=== PATIENT | male | born 1955 | race Two or more races ===

== ENCOUNTER → 2022-12-05 | Outpatient (CLI) | payer OTHER ==
[2022-12-05 06:56] LABS: Urine WBC None Seen /hpf (0 - 3)
[2022-12-05 07:15] LABS: Basophils # (auto) 0 10 ^3/uL (0-0.2); Basophils % (auto) 0.5 % (0.0-2.0); Eosinophils # (auto) 0.2 10 ^3/uL (0-0.8); Eosinophils % (auto) 3.5 % (0.0-7.0); Hematocrit 44.3 % (41.0-53.0); Hemoglobin 15.1 g/dL (13.5-17.5); Lymphocytes % (auto) 36.4 % (10.0-50.0); Mean Corpuscular Hemoglobin 30.8 pg (28.0-32.0); Mean Corpuscular Volume 90.6 fL (80.0-100.0); Monocytes # (auto) 0.6 10 ^3/uL (0-1.3); Monocytes % (auto) 11.8 % (0.0-12.0); Neutrophils # (auto) 2.6 10 ^3/uL (1.6-8.6); Neutrophils % (auto) 47.8 % (37.0-80.0); Nucleated Red Blood Cells % 0.3 %; Red Blood Cells 4.89 10^6/uL (4.5-5.90); Red Cell Distribution Width 13.5 % (11.8-14.3); White Blood Cell 5.4 10^3/uL (4.4-10.8)
[2022-12-05 07:21] LABS: Urine Bacteria NONE SEEN /hpf (None Seen); Urine Blood Negative /uL (Negative); Urine Specific Gravity 1.012 (1.001-1.035)
[2022-12-05 08:05] LABS: Potassium 4.2 mmol/L (3.5-5.1)
[2022-12-05 08:21] LABS: Albumin 3.5 g/dL (3.4-5.0); Bilirubin, Total 0.5 mg/dL (0.2-1.0); Calcium 9.1 mg/dL (8.5-10.1); Total Protein 7.4 g/dL (6.4-8.2)
== END | disposition home or self-care (01) ==
LOC: LAB 06:42 → EDBD 06:42
PROVIDERS: ATTEND Family Medicine
DX: Z00.01 Encounter for general adult medical examination with abnormal findings (principal)
CPT/HCPCS: 36415; 80053; 80061; 81001; 82043; 82306; 83036; 84153; 84443; 85025

== ENCOUNTER → 2023-01-06 | Outpatient (CLI) | payer OTHER ==
[2023-01-06 08:18] LABS: Basophils # (auto) 0 10 ^3/uL (0-0.2); Basophils % (auto) 0.7 % (0.0-2.0); Eosinophils # (auto) 0.2 10 ^3/uL (0-0.8); Eosinophils % (auto) 2.6 % (0.0-7.0); Hematocrit 42.6 % (41.0-53.0); Hemoglobin 14.1 g/dL (13.5-17.5); Lymphocytes # (auto) 1.5 10 ^3/uL (0.4-5.4); Lymphocytes % (auto) 26.6 % (10.0-50.0); Mean Corpuscular Hemoglobin 29.9 pg (28.0-32.0); Mean Corpuscular Hgb Conc. 33.1 g/dL (32.0-36.0); Mean Corpuscular Volume 90.3 fL (80.0-100.0); Monocytes # (auto) 0.6 10 ^3/uL (0-1.3); Monocytes % (auto) 11.2 % (0.0-12.0); Neutrophils # (auto) 3.4 10 ^3/uL (1.6-8.6); Neutrophils % (auto) 58.9 % (37.0-80.0); Nucleated Red Blood Cells % 0.1 %; Red Blood Cells 4.71 10^6/uL (4.5-5.90); Red Cell Distribution Width 13.2 % (11.8-14.3); White Blood Cell 5.8 10^3/uL (4.4-10.8)
[2023-01-06 08:43] LABS: Albumin 3.8 g/dL (3.4-5.0); Calcium 8.8 mg/dL (8.5-10.1); Potassium 4.1 mmol/L (3.5-5.1)
[2023-01-06 08:52] LABS: BUN/Creatinine Ratio 18.6 (10.0-20.0); Bilirubin, Direct 0.1 mg/dL (0-0.2); Bilirubin, Total 0.6 mg/dL (0.2-1.0); Total Protein 7.5 g/dL (6.4-8.2)
== END | disposition home or self-care (01) ==
LOC: LAB 08:02
PROVIDERS: ATTEND Specialist
DX: R94.5 Abnormal results of liver function studies (principal); I10 Essential (primary) hypertension; D64.9 Anemia, unspecified; E78.5 Hyperlipidemia, unspecified; E11.8 Type 2 diabetes mellitus with unspecified complications; E03.9 Hypothyroidism, unspecified
CPT/HCPCS: 36415; 80048; 80061; 80076; 83036; 84443; 85025

== ENCOUNTER → 2023-06-08 | Outpatient (CLI) | payer OTHER ==
[2023-06-08 08:34] LABS: Basophils # (auto) 0 10 ^3/uL (0-0.2); Basophils % (auto) 0.7 % (0.0-2.0); Eosinophils # (auto) 0.1 10 ^3/uL (0-0.8); Eosinophils % (auto) 2.2 % (0.0-7.0); Hematocrit 42.3 % (41.0-53.0); Hemoglobin 14.3 g/dL (13.5-17.5); Lymphocytes # (auto) 1.5 10 ^3/uL (0.4-5.4); Lymphocytes % (auto) 25.8 % (10.0-50.0); Mean Corpuscular Hemoglobin 31.1 pg (28.0-32.0); Mean Corpuscular Volume 91.5 fL (80.0-100.0); Monocytes # (auto) 0.7 10 ^3/uL (0-1.3); Monocytes % (auto) 11.4 % (0.0-12.0); Neutrophils # (auto) 3.5 10 ^3/uL (1.6-8.6); Neutrophils % (auto) 59.9 % (37.0-80.0); Nucleated Red Blood Cells % 0.1 %; Red Blood Cells 4.62 10^6/uL (4.5-5.90); Red Cell Distribution Width 13.7 % (11.8-14.3); White Blood Cell 5.9 10^3/uL (4.4-10.8)
[2023-06-08 09:23] LABS: Alanine Aminotransferase 20 U/L (7-40); Albumin 4.1 g/dL (3.2-4.8); Alkaline Phosphatase 66 U/L (46-116); Anion Gap 6 (5-15); Aspartate Aminotransferase 18 U/L (13-40); BUN/Creatinine Ratio 15.5 (10.0-20.0); Bilirubin, Direct 0.2 mg/dL (<0.3); Bilirubin, Total 0.7 mg/dL (0.2-1.0); Blood Urea Nitrogen 13 mg/dL (9-23); Calcium 9.1 mg/dL (8.5-10.1); Carbon Dioxide 28 mmol/L (20-30); Chloride 108 mmol/L (98-107); Cholesterol 129 mg/dL (< 200); Glucose 95 mg/dL (74-106); HDL Cholesterol 35 mg/dL (40-59); LDL Cholesterol 83 mg/dL (< 100); Potassium 4.1 mmol/L (3.5-5.1); Sodium 142 mmol/L (136-145); Total Protein 7.2 g/dL (5.7-8.2); Triglycerides 72 mg/dL (< 150)
== END | disposition home or self-care (01) ==
LOC: LAB 08:17
PROVIDERS: ATTEND Specialist
DX: I10 Essential (primary) hypertension (principal); D64.9 Anemia, unspecified; E11.8 Type 2 diabetes mellitus with unspecified complications; E03.9 Hypothyroidism, unspecified; E78.5 Hyperlipidemia, unspecified; R45.6 Violent behavior
CPT/HCPCS: 36415; 80048; 80061; 80076; 83036; 84443; 85025

== ENCOUNTER → 2023-07-31 | Outpatient (CLI) | payer OTHER ==
[2023-07-31 08:56] LABS: Alanine Aminotransferase 20 U/L (7-40); Alkaline Phosphatase 69 U/L (46-116); Anion Gap 9 (5-15); BUN/Creatinine Ratio 19.8 (10.0-20.0); Blood Urea Nitrogen 16 mg/dL (9-23); Calcium 9.3 mg/dL (8.5-10.1); Carbon Dioxide 27 mmol/L (20-30); Chloride 107 mmol/L (98-107); Glucose 94 mg/dL (74-106); Potassium 4.3 mmol/L (3.5-5.1); Sodium 143 mmol/L (136-145); Triglycerides 81 mg/dL (< 150)
[2023-07-31 08:57] LABS: LDL Cholesterol 96 mg/dL (< 100)
[2023-07-31 08:58] LABS: Albumin 4.3 g/dL (3.2-4.8); Aspartate Aminotransferase 21 U/L (13-40); Bilirubin, Total 0.5 mg/dL (0.2-1.0); Cholesterol 145 mg/dL (< 200); HDL Cholesterol 38 mg/dL (40-59); Total Protein 7.3 g/dL (5.7-8.2)
== END | disposition home or self-care (01) ==
LOC: LAB 07:59
PROVIDERS: ATTEND Family Medicine
DX: I49.5 Sick sinus syndrome (principal); E78.5 Hyperlipidemia, unspecified; E55.9 Vitamin D deficiency, unspecified; I38 Endocarditis, valve unspecified; R74.8 Abnormal levels of other serum enzymes; H35.032 Hypertensive retinopathy, left eye
CPT/HCPCS: 36415; 80053; 80061; 82306; 83036

== ENCOUNTER 2024-06-22 08:13 | Day surgery (SDC) | payer OTHER ==
[2024-06-20 10:21] LABS: Basophils # (auto) 0 10 ^3/uL (0-0.2); Basophils % (auto) 0.5 % (0.0-2.0); Eosinophils # (auto) 0.1 10 ^3/uL (0-0.8); Eosinophils % (auto) 1.2 % (0.0-7.0); Hematocrit 45.5 % (41.0-53.0); Hemoglobin 15.5 g/dL (13.5-17.5); Lymphocytes # (auto) 1.5 10 ^3/uL (0.4-5.4); Lymphocytes % (auto) 22.8 % (10.0-50.0); Mean Corpuscular Hemoglobin 31.3 pg (28.0-32.0); Monocytes # (auto) 0.6 10 ^3/uL (0-1.3); Monocytes % (auto) 9.2 % (0.0-12.0); Neutrophils # (auto) 4.3 10 ^3/uL (1.6-8.6); Neutrophils % (auto) 66.3 % (37.0-80.0); Nucleated Red Blood Cells % 0.1 %; Platelet Count (auto) 168 10^3/uL (140-450); Red Blood Cells 4.94 10^6/uL (4.5-5.90); Red Cell Distribution Width 13.7 % (11.8-14.3); White Blood Cell 6.4 10^3/uL (4.4-10.8)
[2024-06-20 10:38] LABS: INR 1.03 (0.9-1.15); Prothrombin Time 10.9 sec (9.3-11.8)
[2024-06-20 11:07] LABS: Alanine Aminotransferase 24 U/L (7-40); Albumin 4.5 g/dL (3.2-4.8); Alkaline Phosphatase 73 U/L (46-116); Anion Gap 6 (5-15); Aspartate Aminotransferase 18 U/L (13-40); BUN/Creatinine Ratio 18.7 (10.0-20.0); Blood Urea Nitrogen 17 mg/dL (9-23); Calcium 10.1 mg/dL (8.7-10.4); Carbon Dioxide 28 mmol/L (20-31); Chloride 107 mmol/L (98-107); Glucose 121 mg/dL (74-106); Potassium 4.7 mmol/L (3.5-5.1); Sodium 141 mmol/L (136-145)
[2024-06-20 11:08] LABS: Bilirubin, Total 0.4 mg/dL (0.2-1.0); Total Protein 7.8 g/dL (5.7-8.2)
[~2024-06-22] VITALS: Ht 195.6 cm; Wt 81.6 kg
[~2024-06-22 08:13] MED LIST: ASPI-543 PO
[2024-06-22 08:25] VITALS: TEMP 97.6
[2024-06-22] MEDS ORDERED: SODIUM CHLORIDE LOCK 10 ML ONE (08:40)
[2024-06-22] MEDS ORDERED: LIDOCAINE VISCOUS 2% 15ML UD ONE (08:40)
[2024-06-22] MEDS ORDERED: diphenhdrAMINE HCL 50 MG/1 ML VL ONE (08:41)
[2024-06-22 09:03] VITALS: O2SAT 94
[2024-06-22] MEDS: MIDAZOLAM HCL 5 MG/ML-1ML VIAL ONE (09:07)
[2024-06-22] MEDS: fentaNYL CITRATE 100 MCG/2 ML VL ONE (09:07)
[2024-06-22 09:45] VITALS: BP 107/71; PULSE 60; RESP 18; O2SAT 93
== END 2024-06-27 10:20 | disposition home or self-care (01) ==
LOC: GI 08:13
PROVIDERS: ATTEND Internal Medicine Gastroenterology
DX: K62.5 Hemorrhage of anus and rectum (principal); K57.30 Diverticulosis of large intestine without perforation or abscess without bleeding; K52.9 Noninfective gastroenteritis and colitis, unspecified; K64.8 Other hemorrhoids; Z86.0100 Personal history of colon polyps, unspecified; Z95.0 Presence of cardiac pacemaker; Z98.41 Cataract extraction status, right eye; Z98.42 Cataract extraction status, left eye; Z98.890 Other specified postprocedural states
CPT/HCPCS: 36415; 45380; 80053; 85025; 85610; 85730; 88305; J1200; J2250; J3010; J7030; 99152

== ENCOUNTER → 2024-08-15 | Outpatient (CLI) | payer OTHER ==
[2024-08-15 09:48] LABS: Basophils # (auto) 0 10 ^3/uL (0-0.2); Basophils % (auto) 0.5 % (0.0-2.0); Eosinophils # (auto) 0.1 10 ^3/uL (0-0.8); Eosinophils % (auto) 2.5 % (0.0-7.0); Hematocrit 44.6 % (41.0-53.0); Hemoglobin 14.9 g/dL (13.5-17.5); Lymphocytes # (auto) 1.7 10 ^3/uL (0.4-5.4); Lymphocytes % (auto) 30.2 % (10.0-50.0); Mean Corpuscular Hemoglobin 30.8 pg (28.0-32.0); Mean Corpuscular Hgb Conc. 33.3 g/dL (32.0-36.0); Mean Corpuscular Volume 92.3 fL (80.0-100.0); Monocytes # (auto) 0.7 10 ^3/uL (0-1.3); Monocytes % (auto) 12.5 % (0.0-12.0); Neutrophils % (auto) 54.3 % (37.0-80.0); Nucleated Red Blood Cells % 0.1 %; Platelet Count (auto) 168 10^3/uL (140-450); Red Blood Cells 4.83 10^6/uL (4.5-5.90); Red Cell Distribution Width 13.8 % (11.8-14.3); White Blood Cell 5.6 10^3/uL (4.4-10.8)
[2024-08-15 10:22] LABS: Alanine Aminotransferase 33 U/L (7-40); Albumin 4.3 g/dL (3.2-4.8); Alkaline Phosphatase 74 U/L (46-116); Anion Gap 7 (5-15); Aspartate Aminotransferase 22 U/L (13-40); Blood Urea Nitrogen 18 mg/dL (9-23); Carbon Dioxide 28 mmol/L (20-31); Chloride 108 mmol/L (98-107); Glucose 99 mg/dL (74-106); LDL Cholesterol 94 mg/dL (< 100); Potassium 4.7 mmol/L (3.5-5.1); Sodium 143 mmol/L (136-145); Triglycerides 145 mg/dL (< 150)
[2024-08-15 10:23] LABS: Bilirubin, Direct 0.1 mg/dL (<0.3); Bilirubin, Total 0.3 mg/dL (0.2-1.0); Cholesterol 151 mg/dL (< 200); HDL Cholesterol 39 mg/dL (40-59); Total Protein 7.6 g/dL (5.7-8.2)
== END | disposition home or self-care (01) ==
LOC: LAB 09:20
PROVIDERS: ATTEND Specialist
DX: R68.89 Other general symptoms and signs (principal); I10 Essential (primary) hypertension; E03.9 Hypothyroidism, unspecified; D64.9 Anemia, unspecified; E78.5 Hyperlipidemia, unspecified; E11.9 Type 2 diabetes mellitus without complications
CPT/HCPCS: 36415; 80053; 80061; 82248; 84443; 85025

== ENCOUNTER → 2024-09-09 | Outpatient (CLI) | payer OTHER ==
[~2024-09-09] VITALS: Ht 167.6 cm; Wt 86.2 kg
[2024-09-09] MEDS: REGADENOSON 0.4 MG/5 ML SYRG IV ONE ×2 (08:52→09:04)
--- NOTE | 2024-09-12 08:20 | DVHSR ---
APPROVED REPORT Exam: Nuclear Stress Test Indication: HTN BMI: 0 Medical History Medical History: HTN, HLO, DM, Pacemaker Medications: NKDA Allergies: No known drug allergies Stress Test Details Stress Test: Pharmacologic stress testing performed using 0.4 mg of regadenoson per 5 mL given IV ov er 10 seconds. HR Resting HR: 60 bpmMax Heart Rate (APMHR): 150.095300 bpm Max HR Achieved: 78 bpmTarget HR (85% APMHR): 127.782172 bpm % of APMHR: 52.00 Recovery HR: 72 bpm BP Resting BP: 147/88 mmHg Recovery BP: 138/80 mmHg ECG Resting ECG: Paced Clinical Reason for Termination: Completed protocol Nurse Comments Recieved pt. from [facility]. A/Ox4 on RA. Connected to spout tender, VS stable. PIV flushes well. Reviewed POC. Pt. verbalized understanding of procedure including risks and side ef fects, agrees for stress testing. Lexiscan stress test performed per protocol. [facility] tech administered Cardiolite. Pt. tolerated well . Pt. stable, no change on exam. VS returned to baseline. Transferred to [facility] via wheelchair w/ te ch. Stress ECG Conclusion Review of the myocardial perfusion images demonstrated a small area of moderate intensity reduced rad iotracer uptake in the LV apex. This appears to be mostly fixed based on review of the resting image s. Otherwise, there is homogeneous radiotracer uptake throughout the rest of the left ventricular my ocardium during stress. Ejection fraction is slightly decreased and is estimated at 47%. No gated i mages are available to assess for wall motion. Impression: 1. Fixed small defect in the LV apex which could represent either apical thinning artifact versus donato or small infarction. 2. No evidence of ischemia. 3. Mildly decreased left ventricular systolic function with ejection fraction of 47%. NM EXAM: Myocardial Perfusion REST/STRESS Imaging Protocol: Rest Tc-99m/Stress Tc-99m 1 day Resting Data Rest SPECT myocardial perfusion imaging was performed in supine position 60 minutes following the int ravenous injection of 11.2 mCi of Tc-99m Sestamibi. Time of rest injection: 0735 Time of rest imagin Administration Route: IV Administration Site: Right Hand Pharmacologic Stress Pharmacologic stress test was performed by injecting Regadenoson 0.4 mg IV push followed by the intra venous injection of 30.4 mCi of Tc-99m Sestamibi. Time of stress injection: 851 Time of stress imagin Administration Route: IV Administration Site: Right Hand Gated Stress SPECT was performed 60 minutes after stress injection. The images were gated to evaluate regional wall motion and calculate left ventricular ejection fracti on. Stress only was performed in the Supine position. Nuclear Conclusion ECG Findings: negative for ischemia Clinical Findings: negative for ischemia Nuclear Findings: negative for ischemia Exercise Capacity: not assessed Left Ventricular Function: abnormal Risk Study: moderate Review of the myocardial perfusion images demonstrated a small area of moderate intensity reduced rad iotracer uptake in the LV apex. This appears to be mostly fixed based on review of the resting image s. Otherwise, there is homogeneous radiotracer uptake throughout the rest of the left ventricular my ocardium during stress. Ejection fraction is slightly decreased and is estimated at 47%. No gated i mages are available to assess for wall motion. Impression: 1. Fixed small defect in the LV apex which could represent either apical thinning artifact versus donato or small infarction. 2. No evidence of ischemia. 3. Mildly decreased left ventricular systolic function with ejection fraction of 47%.
== END | disposition home or self-care (01) ==
LOC: XYW 06:52
PROVIDERS: ATTEND Specialist
DX: I11.0 Hypertensive heart disease with heart failure (principal); I50.20 Unspecified systolic (congestive) heart failure; E11.9 Type 2 diabetes mellitus without complications; E78.5 Hyperlipidemia, unspecified; Z95.0 Presence of cardiac pacemaker
CPT/HCPCS: 78452; 93017; A9500; J2785

== ENCOUNTER → 2024-09-09 | Outpatient (CLI) | payer OTHER ==
[2024-09-09 11:06] LABS: Anion Gap 4 (5-15); Carbon Dioxide 27 mmol/L (20-31); Chloride 107 mmol/L (98-107); Potassium 4.3 mmol/L (3.5-5.1); Sodium 138 mmol/L (136-145)
[2024-09-09 11:08] LABS: Calcium 9.3 mg/dL (8.7-10.4)
[2024-09-09 11:13] LABS: BUN/Creatinine Ratio 16.2 (10.0-20.0); Blood Urea Nitrogen 16 mg/dL (9-23)
[2024-09-09 11:14] LABS: Glucose 159 mg/dL (74-106)
[2024-09-09 11:22] LABS: Creatinine, Urine 101.04 mg/dL (30.0-125.0)
== END | disposition home or self-care (01) ==
LOC: LAB 10:18
PROVIDERS: ATTEND Family Medicine
DX: E11.9 Type 2 diabetes mellitus without complications (principal)
CPT/HCPCS: 36415; 80048; 82043; 82570

== ENCOUNTER → 2024-11-03 | Outpatient (CLI) | payer OTHER ==
[2024-11-03 07:49] LABS: Urine Bacteria None Seen /hpf (None Seen)
[2024-11-03 08:12] LABS: Basophils # (auto) 0 10 ^3/uL (0-0.2); Basophils % (auto) 0.7 % (0.0-2.0); Eosinophils # (auto) 0.1 10 ^3/uL (0-0.8); Eosinophils % (auto) 2.3 % (0.0-7.0); Hematocrit 46.5 % (41.0-53.0); Hemoglobin 16.1 g/dL (13.5-17.5); Lymphocytes # (auto) 1.9 10 ^3/uL (0.4-5.4); Lymphocytes % (auto) 34.9 % (10.0-50.0); Mean Corpuscular Hemoglobin 31.5 pg (28.0-32.0); Mean Corpuscular Hgb Conc. 34.5 g/dL (32.0-36.0); Mean Corpuscular Volume 91.2 fL (80.0-100.0); Monocytes # (auto) 0.7 10 ^3/uL (0-1.3); Monocytes % (auto) 12.3 % (0.0-12.0); Neutrophils # (auto) 2.8 10 ^3/uL (1.6-8.6); Neutrophils % (auto) 49.8 % (37.0-80.0); Nucleated Red Blood Cells % 0.2 %; Platelet Count (auto) 179 10^3/uL (140-450); Red Cell Distribution Width 13.5 % (11.8-14.3); White Blood Cell 5.5 10^3/uL (4.4-10.8)
[2024-11-03 08:19] LABS: Urine Blood Negative /uL (Negative); Urine Clarity Clear (Clear); Urine Color Yellow (Yellow); Urine Protein, UAD Negative (Negative); Urine Specific Gravity 1.015 (1.001-1.035); Urine Squamous Epithelial Cell None Seen /hpf (<5); Urine Urobilinogen Normal (Negative); Urine WBC < 1 /HPF (0-3); Urine pH 6.5 (5.0-9.0)
[2024-11-03 08:34] LABS: Chloride 105 mmol/L (98-107); Potassium 4.5 mmol/L (3.5-5.1); Sodium 140 mmol/L (136-145); Triglycerides 137 mg/dL (< 150)
[2024-11-03 12:54] LABS: Alkaline Phosphatase 74 U/L (46-116); Anion Gap 6 (5-15); Blood Urea Nitrogen 15 mg/dL (9-23); Carbon Dioxide 29 mmol/L (20-31); Glucose 93 mg/dL (74-106)
[2024-11-03 12:55] LABS: Alanine Aminotransferase 29 U/L (7-40); Aspartate Aminotransferase 25 U/L (13-40); Bilirubin, Direct 0.2 mg/dL (<0.3); Bilirubin, Total 0.6 mg/dL (0.2-1.0); Calcium 9.9 mg/dL (8.7-10.4)
[2024-11-03 12:56] LABS: Albumin 4.5 g/dL (3.2-4.8); Cholesterol 171 mg/dL (< 200); HDL Cholesterol 42 mg/dL (40-59); LDL Cholesterol 117 mg/dL (< 100); Total Protein 7.7 g/dL (5.7-8.2)
== END | disposition home or self-care (01) ==
LOC: LAB 07:17
PROVIDERS: ATTEND Family Medicine
DX: E11.9 Type 2 diabetes mellitus without complications (principal); R68.89 Other general symptoms and signs; I10 Essential (primary) hypertension; E78.5 Hyperlipidemia, unspecified; E03.9 Hypothyroidism, unspecified; D64.9 Anemia, unspecified
CPT/HCPCS: 36415; 80053; 80061; 81001; 82248; 83036; 84153; 84443; 85025

== ENCOUNTER 2025-03-07 07:21 | Outpatient (CLI) | payer OTHER ==
[2025-03-07 08:12] LABS: Hematocrit 43.3 % (41.0-53.0); Hemoglobin 14.7 g/dL (13.5-17.5); Mean Corpuscular Hemoglobin 30.7 pg (28.0-32.0); Mean Corpuscular Volume 90.3 fL (80.0-100.0); Nucleated Red Blood Cells % 0.0 %
[2025-03-07 08:41] LABS: Alanine Aminotransferase 19 U/L (7-40); Alkaline Phosphatase 63 U/L (46-116); Anion Gap 8 (5-15); BUN/Creatinine Ratio 21.6 (10.0-20.0); Blood Urea Nitrogen 19 mg/dL (9-23); Calcium 9.3 mg/dL (8.7-10.4); Carbon Dioxide 26 mmol/L (20-31); Glucose 91 mg/dL (74-106); Potassium 3.9 mmol/L (3.5-5.1); Sodium 143 mmol/L (136-145); Triglycerides 94 mg/dL (< 150)
[2025-03-07 08:42] LABS: Total Protein 6.8 g/dL (5.7-8.2)
[2025-03-07 08:43] LABS: Albumin 4.1 g/dL (3.2-4.8); Bilirubin, Direct 0.2 mg/dL (<0.3); Bilirubin, Total 0.6 mg/dL (0.2-1.0); Cholesterol 126 mg/dL (< 200)
[2025-03-07 08:45] LABS: Chloride 109 mmol/L (98-107); HDL Cholesterol 32 mg/dL (40-59)
== END 2025-03-07 17:00 | disposition home or self-care (01) ==
LOC: LAB 07:21
PROVIDERS: ATTEND Specialist
DX: I10 Essential (primary) hypertension (principal); E11.9 Type 2 diabetes mellitus without complications; E78.5 Hyperlipidemia, unspecified; E03.9 Hypothyroidism, unspecified; D64.9 Anemia, unspecified; R68.89 Other general symptoms and signs
CPT/HCPCS: 36415; 80053; 80061; 82248; 83036; 84443; 85025

== ENCOUNTER → 2025-05-03 | Outpatient (CLI) | payer OTHER ==
[2025-05-03 07:58] LABS: Hematocrit 41.9 % (41.0-53.0); Hemoglobin 14.8 g/dL (13.5-17.5); Mean Corpuscular Hemoglobin 32.0 pg (28.0-32.0); Mean Corpuscular Volume 90.4 fL (80.0-100.0); Nucleated Red Blood Cells % 0.1 %
[2025-05-03 08:13] LABS: Alanine Aminotransferase 19 U/L (7-40); Albumin 4.0 g/dL (3.2-4.8); Alkaline Phosphatase 68 U/L (46-116); Anion Gap 8 (5-15); BUN/Creatinine Ratio 17.1 (10.0-20.0); Bilirubin, Total 0.5 mg/dL (0.2-1.0); Blood Urea Nitrogen 20 mg/dL (9-23); Calcium 8.9 mg/dL (8.7-10.4); Carbon Dioxide 27 mmol/L (20-31); Chloride 107 mmol/L (98-107); Cholesterol 134 mg/dL (< 200); Glucose 97 mg/dL (74-106); Potassium 4.6 mmol/L (3.5-5.1); Sodium 142 mmol/L (136-145); Total Protein 7.1 g/dL (5.7-8.2); Triglycerides 124 mg/dL (< 150)
[2025-05-03 08:14] LABS: HDL Cholesterol 31 mg/dL (40-59)
== END | disposition home or self-care (01) ==
LOC: LAB 07:28
PROVIDERS: ATTEND Specialist
DX: I11.0 Hypertensive heart disease with heart failure (principal); I50.9 Heart failure, unspecified; E11.9 Type 2 diabetes mellitus without complications; E78.5 Hyperlipidemia, unspecified; E03.9 Hypothyroidism, unspecified; D64.9 Anemia, unspecified; R68.89 Other general symptoms and signs
CPT/HCPCS: 36415; 80053; 80061; 83036; 84443; 85025

== ENCOUNTER 2025-06-10 11:22 | Inpatient (IN) | payer OTHER ==
[~2025-06-10] VITALS: Ht 175.3 cm; Wt 89.5 kg
--- NOTE | 2025-06-10 11:39 | ED.PDOC ---
Shyanne. trauma (HPI) HPI Comments A 69 YEAR OLD MALE PRESENTS TO THE ED WITH COMPLAINT OF LEFT HIP PAIN AFTER A MECHANICAL FALL FROM CLEANING A POOL, TRIPPING AND LANDING DIRECTLY ON HIS HIP. HE PRESENTS IN A WHEELCHAIR DUE TO INABILITY TO BEAR WEIGHT. THE PAIN IS LOCALIZED TO THE HIP AND DOES NOT RADIATE TO THE LEG. PT IS UNABLE TO WALK AND STAND DUE TO THE PAIN. THE PAIN LEVEL IS 8/10 AT THIS TIME. PATIENT DENIES ASSOCIATED HEAD TRAUMA, LIGHTHEADEDNESS, OR LOC. PATIENT DENIES FEVER, CHILLS, SHORTNESS OF BREATH, CHEST PAIN, ABDOMINAL PAIN, NAUSEA, VOMITING, HEADACHE, OR OTHER COMPLAINTS. NO OTHER SYMPTOMS OR MODIFYING FACTORS AT THIS TIME. PATIENT IS ALERT AND ORIENTATION. Chief Complaint: Fall Injury Time Seen by MD: 11:30 Reviewed notes: Nurses Notes, Medications, Allergies Allergies: Coded Allergies: NO KNOWN ALLERGIES (Unverified , 09/09/24) Home Meds Reported Medications Aspirin (Aspir-Low) 81 Mg Tab, 81 MG PO DAILY for 30 Days, MG 06/20/24 Information Source: Patient Mode of Arrival: Ambulatory Severity: Moderate Duration: Since onset Location: (L) Hip Location of laceration: None Mechanism: Fall Associated signs and symtoms: Other (LEFT HIP PAIN ) Past Medical History PAST MEDICAL HISTORY: Denies Surgical History: Denies all surgeries Family History Family History: Reviewed,noncontributory to illness Social History Smoker: Non-Smoker Alcohol: Denies ETOH Use Drugs: Denies Drug Use Lives In: Home Constitutional: denies: chills, diaphoresis, fatigue, fever, malaise, sweats, weakness, others EENTM: denies: blurred vision, double vision, ear bleeding, ear discharge, ear drainage, ear pain, ear ringing, eye pain, eye redness, hearing loss, mouth pain, mouth swelling, nasal discharge, nose bleeding, nose congestion, nose pain, photophobia, tearing, throat pain, throat swelling, voice changes, others Respiratory: denies: cough, hemoptysis, orthopnea, SOB at rest, shortness of breath, SOB with excertion, stridor, wheezing, others Cardiovascular: denies: chest pain, dizzy spells, diaphoresis, Dyspnea on exertion, edema, irregular heart beat, left arm pain, lightheadedness, palpitations, PND, syncope, others Gastrointestinal: denies: abdomen distended, abdominal pain, blood streaked bowels, constipated, diarrhea, dysphagia, difficulty swallowing, hematemesis, melena, nausea, poor appetite, poor fluid intake, rectal bleeding, rectal pain, vomiting, others Genitourinary: denies: burning, dysuria, flank pain, frequency, hematuria, incontinence, penile discharge, penile sore, pain, testicle pain, testicle swelling, urgency, others Neurological: denies: dizziness, fainting, headache, left sided numbness, left sided weakness, numbness, paresthesia, pre-existing deficit, right sided numbness, right sided weakness, seizure, speech problems, tingling, tremors, weakness, others Musculoskeletal: reports: joint pain, muscle pain, others (LEFT HIP PAIN ); denies: back pain, gout, joint swelling, muscle stiffness, neck pain Integumetry: denies: bruises, change in color, change in hair/nails, dryness, laceration, lesions, lumps, rash, wounds, others Allergic/Immunocompromised: denies: Difficulty Healing, Frequent Infections, Hives, Itching, others Hematologic/Lymphatic: denies: anemia, blood clots, easy bleeding, easy bruising, swollen glands, others Endocrine: denies: excessive hunger, excessive sweating, excessive thirst, excessive urination, flushing, intolerance to cold, intolerance to heat, unexplained weight gain, unexplained weight loss, others Psychiatric: denies: anxiety, bipolar disorder, depression, hopeless, panic disorder, schizophrenia, sleepless, suicidal, others All Other Systems: Reviewed and Negative Physical Exam General Appearance: No Apparent Distress, Normal HEENT: Normal ENT Inspection, PERRL/EOMI, Pharynx Normal, TMs Normal Neck: Full Range of Motion, Non-Tender, Normal, Normal Inspection Respiratory: Chest Non-Tender, Lungs Clear, No Accessory Muscle Use, No Respiratory Distress, Normal Breath Sounds Cardiovascular: No Edema, No JVD, No Murmur, No Gallop, Normal Peripheral Pulses, Regular Rate/Rhythm Breast Exam: Deferred Gastrointestinal: No Organomegaly, Non Tender, No Pulsatile Mass, Normal Bowel Sounds, Soft Genitalia: Deferred Pelvic: Deferred Rectal: Deferred Extremities: Decreased range of motion, No calf tenderness, Normal capillary refill, No pedal edema, Tender (ON LEFT ANTERIOR AND POSTERIOR HIP, NO DEFORMITY, ROM DECREASING, NEUROVASCULAR INTACT. ) Musculoskeletal : Apperance: Normal Neurologic: Alert, social media coordinator II-XII nml as Tested, No Motor Deficits, Normal Affect, Normal Mood, No Sensory Deficits Cerebellar Function: Normal Reflexes: Normal Skin: Dry, Normal Color, Warm Peripheral Pulses: 2+ carotid (R), 2+ carotid (L) Lymphatic: No Adenopathy Was a procedure done? Was a procedure done?: No Differential Diagnosis Multiple Trauma: Fractures, Contusion, Other (SPRAIN, STRAIN, DISLOCATION ) X-Ray, Labs, Meds, VS Vital Signs Date Time Temp Pulse Resp B/P (MAP) Pulse Ox O2 Delivery O2 Flow Rate FiO2 06/10/25 16:00 60 18 128/71 (90) 92 06/10/25 14:30 60 18 127/75 06/10/25 14:30 60 18 127/75 (92) 92 06/10/25 13:24 60 12 137/73 06/10/25 12:30 60 12 95 Room Air* 0 21 06/10/25 12:30 98.3 60 12 137/73 (94) 95 98.3 06/10/25 11:25 98.0 60 16 143/82 98 98.0 Lab Test 06/10/25 12:30 06/10/25 12:19 Range/Units Urine Color Yellow Yellow Urine Clarity Clear Clear Urine pH 5.5 5.0-9.0 Urine Specific [place] 1.026 1.001-1.035 Urine Protein Negative Negative Urine Ketones Negative Negative Urine Blood Negative Negative /uL Urine Nitrite Negative Negative Urine Bilirubin Negative Negative Urine Urobilinogen Normal Negative mg/dL Urine Leukocyte Esterase Negative Negative /uL Urine RBC 1 0 - 3 /hpf Urine Microscopic WBC 1 0-3 /HPF Urine Squamous Epithelial Cells Few <5 /hpf Urine Bacteria None seen None Seen /hpf Urine Mucus Few None Seen Urine Glucose Normal Normal mg/dL White Blood Count 8.6 4.4-10.8 10^3/uL Red Blood Count 4.51 4.5-5.90 10^6/uL Hemoglobin 13.9 13.5-17.5 g/dL Hematocrit 41.6 41.0-53.0 % Mean Corpuscular Volume 92.3 80.0-100.0 fL Mean Corpuscular Hemoglobin 30.9 28.0-32.0 pg Mean Corpuscular Hemoglobin Concent 33.5 32.0-36.0 g/dL Red Cell Distribution Width 13.6 11.8-14.3 % Platelet Count 162 140-450 10^3/uL Mean Platelet Volume 8.6 6.9-10.8 fL Neutrophils (%) (Auto) 84.0 H 37.0-80.0 % Lymphocytes (%) (Auto) 8.9 L 10.0-50.0 % Monocytes (%) (Auto) 6.4 0.0-12.0 % Eosinophils (%) (Auto) 0.4 0.0-7.0 % Basophils (%) (Auto) 0.3 0.0-2.0 % Neutrophils # (Auto) 7.2 1.6-8.6 10 ^3/uL Lymphocytes # (Auto) 0.8 0.4-5.4 10 ^3/uL Monocytes # (Auto) 0.5 0-1.3 10 ^3/uL Eosinophils # (Auto) 0 0-0.8 10 ^3/uL Basophils # (Auto) 0 0-0.2 10 ^3/uL Nucleated Red Blood Cells 0.0 % Prothrombin Time 11.4 9.3-11.8 sec Prothrombin Time INR 1.08 0.9-1.15 Sodium Level 141 136-145 mmol/L Potassium Level 4.2 3.5-5.1 mmol/L Chloride Level 105 98-107 mmol/L Carbon Dioxide Level 27 20-31 mmol/L Anion Gap 9 5-15 Blood Urea Nitrogen 20 9-23 mg/dL Creatinine 1.16 0.700-1.30 mg/dL Glomerular Filtration Rate Calc 67 >90 mL/min BUN/Creatinine Ratio 17.2 10.0-20.0 Serum Glucose 138 H 74-106 mg/dL Calcium Level 9.1 8.7-10.4 mg/dL Current Medications Medications (Trade) Dose Ordered Sig/Sarah Route Start Time Stop Time Status Last Admin Ondansetron HCl (Zofran) 4 mg ONCE ONCE IV 06/10/25 12:15 06/10/25 12:16 DC 06/10/25 13:15 Sodium Chloride 1,000 ml @ 1,000 mls/hr Q1H ONCE IV 06/10/25 12:15 06/10/25 13:14 DC 10/18/25 13:15 Hydromorphone HCl (Dilaudid Injection) 0.5 mg ONCE ONCE IV 06/10/25 13:15 06/10/25 13:16 DC 06/10/25 13:24 Acetaminophen/ Hydrocodone Bitart ([place] 10/325MG Tab) 1 tab ONCE ONCE PO 06/10/25 17:00 06/10/25 17:01 DC 06/10/25 17:08 [place] [address] Ph: [phone] DIAGNOSTIC IMAGING Diagnostic Imaging Report : [id number] Signed PATIENT: WALTER MCCAIN ACCT: [id number] UNIT: [id number] : 1955 LOC: ER ROOM / BED: / AGE / SEX: 69 / M ADM STATUS: REG ER SERVICE 33 ORDERING PHYSICIAN: LIZETH WALTERS PROCEDURE(s): LHPCT - CT L HIP WITH OUT CONTRAST REASON: FALL TODAY ORDER NUMBER(s): [id number], ACCESSION NUMBER(s): [id number] EXAM: CT CT L HIP WITH OUT CONTRAST HISTORY: FALL TODAY COMPARISON: None TECHNIQUE: Noncontrast axial CT images of the left hip were performed. Sagittal and coronal reformatted images were obtained. This CT exam was performed using one or more of the following dose reduction techniques: Automated exposure control, adjustment of the mA and/or kV according to patient size, or use of iterative reconstruction technique. Radiation Dose Information: CT Dose: CTDI volume is 22.71 mGy. Dose-length product is 705.12 mGy*cm. FINDINGS: There is a displaced fracture of the mid left femoral neck with proximal translation of the distal fracture fragment resulting in coxa vera angulation of the proximal left femur. There is mild soft tissue swelling about the left hip. The visualized pelvic bowel loops are normal caliber. There is mild prostatomegaly. There is a small fat containing left inguinal hernia. There is mild distal colonic diverticulosis. There is subcutaneous soft tissue swelling overlying the left hip. IMPRESSION: 1. Displaced mid left femoral neck fracture with proximal translation of the distal femoral fracture fragment resulting in coxa vera angulation of the proximal left femur. ATED BY: ITZ SIMS MD DICTATED DATE/TIME: 06/10/251223 SIGNED BY: ITZ SIMS MD SIGNED DATE/TIME: 06/10/251223 CC: X-Ray, Labs, Meds, VS Comment EXTERNAL MEDICAL RECORDS REVIEWED: [NONE] INDEPENDENT HISTORIANS: [NONE] SOCIAL DETERMINANTS OF HEALTH: [NONE] LABS ORDERED: UA, CBC, BMP, ORTHOPEDIC CONSULTATION REVIEWED AND INTERPRETED RESULTS: NONE IMAGING ORDERED: CT LEFT HIP AND CXR TREATMENTS ORDERED: DILAUDID0.5MG IVP AND ZOFRAN, NS 0.9 NS 125ML/HOUR PROCEDURES PERFORMED: NONE CRITICAL CARE TIME: NONE I HAVE DISCUSSED THE PATIENT WITH THE ATTENDING PHYSICIAN, DR. GUERRERO, HE AGREES WITH THE PATIENT'S PLAN OF CARE AND DISPOSITION. BASED ON HISTORY OF PRESENT ILLNESS, AND PHYSICAL EXAM, PATIENT WILL BE ADMITTED TO HOSPITAL. 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 SPOKE WITH DR. LIU WAS CONTACTED REGARDING IMAGING FINDINGS. WILL ADMIT PATIENT FOR CONSULTATION. ALL PATIENT'S QUESTIONS ADDRESSED AT TIME. Time of 1ST Reevaluation: 12:00 Reevaluation 1ST: Unchanged Consultation: Other (12:00 DR. LIU WAS CONSULTED FOR LEFT HIP SURGERY. HE AGREES TO CONSULT PATIENT AND FOR STAFF TO ADMIT HIM TO THE HOSPITAL. DR. LIU WILL SEE PATIENT TOMORROW. ) Patient Education/Counseling: Diagnosis, Treatment Family Education/Counseling: Diagnosis, Treatment Departure 1 Departure Time of Disposition: 13:00 Impression: Primary Impression: Left displaced femoral neck fracture Additional Impression: Status post fall Disposition: ADMITTED INPATIENT Condition: Serious Critical Care Note Critical Care Time?: No Stability Stability form required: Yes Unstable for transfer: Requires medication, ED Physician Assesment, Possible rapid decline I personally scribed for LIZETH WALTERS ([email or web address]) on 06/10/25 at 11:39. Electronically submitted by Kate Garcia ([facility]). I personally scribed for LIZETH WALTERS ([email or web address]) on 06/10/25 at 13:58. Electronically submitted by Kate Garcia ([facility]). LIZETH WALTERS Jun 10, 2025 11:39
[2025-06-10] MEDS ORDERED: MORPHINE SULFATE INJ 2 MG/ml SYRG IV ONE (12:15)
--- NOTE | 2025-06-10 12:27 | DVH ---
EXAM: CT CT L HIP WITH OUT CONTRAST HISTORY: FALL TODAY COMPARISON: None TECHNIQUE: Noncontrast axial CT images of the left hip were performed. Sagittal and coronal reformatt ed images were obtained. This CT exam was performed using one or more of the following dose reduction techniques: Automated exposure control, adjustment of the mA and/or kV according to patient size, or use of iterative reconstruction technique. Radiation Dose Information: CT Dose: CTDI volume is 22.71 mGy. Dose-length product is 705.12 mGy*cm. FINDINGS: There is a displaced fracture of the mid left femoral neck with proximal translation of the distal fr acture fragment resulting in coxa vera angulation of the proximal left femur. There is mild soft tiss ue swelling about the left hip. The visualized pelvic bowel loops are normal caliber. There is mild prostatomegaly. There is a small fat containing left inguinal hernia. There is mild distal colonic d iverticulosis. There is subcutaneous soft tissue swelling overlying the left hip. IMPRESSION: 1. Displaced mid left femoral neck fracture with proximal translation of the distal femoral fracture fragment resulting in coxa vera angulation of the proximal left femur.
[2025-06-10 12:30] VITALS: PULSE 60; RESP 12; O2SAT 95
--- NOTE | 2025-06-10 12:41 | DVH ---
CHEST RADIOGRAPH Indication: PRE SURGERY Technique: Single frontal view of the chest was obtained COMPARISON: None FINDINGS: Lines and Tubes: Pacemaker/ AICD in the left upper chest with 2 cardiac leads. Lungs: Clear Pleura: No effusion. No pneumothorax. Cardiomediastinal contours: Unremarkable Bones: Unremarkable IMPRESSION: 1. No radiographic evidence of acute cardiopulmonary abnormality.
[2025-06-10 13:05] LABS: Hematocrit 41.6 % (41.0-53.0); Hemoglobin 13.9 g/dL (13.5-17.5); Mean Corpuscular Hemoglobin 30.9 pg (28.0-32.0); Mean Corpuscular Volume 92.3 fL (80.0-100.0); Nucleated Red Blood Cells % 0.0 %
[2025-06-10 13:08] LABS: Chloride 105 mmol/L (98-107); Potassium 4.2 mmol/L (3.5-5.1); Sodium 141 mmol/L (136-145)
[2025-06-10 13:09] LABS: Anion Gap 9 (5-15); Calcium 9.1 mg/dL (8.7-10.4); Carbon Dioxide 27 mmol/L (20-31)
[2025-06-10 13:14] LABS: BUN/Creatinine Ratio 17.2 (10.0-20.0); Blood Urea Nitrogen 20 mg/dL (9-23)
[2025-06-10] MEDS: ONDANSETRON HCL 4 MG/2 ML VIAL IV ONE (13:15)
[2025-06-10] MEDS: SODIUM CHLORIDE 0.9% 1,000 ML IV ONE (13:15)
[2025-06-10 13:18] LABS: Glucose 138 mg/dL (74-106)
[2025-06-10 13:20] LABS: INR 1.08 (0.9-1.15); Prothrombin Time 11.4 sec (9.3-11.8)
[2025-06-10] MEDS: HYDROmorphone HCL 2 MG/ML VL/or syr IV ONE (13:24)
[2025-06-10 13:48] LABS: Urine Protein, UAD Negative (Negative)
[2025-06-10] MEDS: HYDROcodone-ACET 10/325MG TAB PO ONE (17:08)
[2025-06-10] MEDS ORDERED: ONDANSETRON HCL 4 MG/2 ML VIAL IV PRN (19:45)
[2025-06-10] MEDS: HYDROmorphone HCL 2 MG/ML VL/or syr IV PRN (20:27)
--- NOTE | 2025-06-10 20:36 | DVHHP2 ---
History of Present Illness Reason for Visit: Left displaced femoral neck fracture History of Present Illness The patient is a 69-year-old male who denies past medical history presented to [facility] ED with complaint of left hip pain status post mechanical fall. Patient reports that he was cleaning a pool when he tripped and fall landing directly on his hip with sustained injury. Patient reports localized pain to the left hip, unable to walk or stand due to the pain, rating pain 8/10 numeric scale, on a wheelchair due to inability to bear weight. Patient was seen and evaluated in the ED, laboratory data shows WBC 8.6, platelets 162, sodium 141, potassium 4.2, BUN 20, creatinine 1.16, glucose 138, calcium 9.1, blood pressure 140/78, heart rate 60, temperature 98.3 F, O2 saturation 95% on room air. Hip CT revealing displaced mid left femoral neck fracture with proximal translation of the distal femoral fracture fragment resulting in coxa vera angulation of the proximal left femur. Please see medication orders section in the computer. On my assessment, at bedside, patient denied chest pain, no headache, dizziness, diaphoresis, shortness of breaths, abdominal pain, nausea, vomiting, no fever, chills. Patient was admitted for further evaluation and medical management. Past Medical History Denies past medical history Past Surgical History Denies all surgeries Family History Reviewed, noncontributory to the management of this case. Past Social History The patient lives at home, denies smoking, alcohol or illicit drugs abuse. Review of Systems Constitutional: No: Fever, Chills, Sweats, Weakness, Malaise, Other Eyes: No: Pain, Vision change, Conjunctivae inflammation, Eyelid inflammation, Other, Redness ENT: No: Ear pain, Ear discharge, Nose pain, Nose discharge, Nose congestion, Mouth pain, Mouth swelling, Throat pain, Throat swelling, Other Respiratory: No: Cough, Dry, Shortness of breath, SOB with excertion, Wheezing, Hemoptysis, Pleuritic Pain, Sputum, Wheezing, Other Cardiovascular: No: Chest Pain, Palpitations, Orthopnea, Paroxysmal Noc. Dyspnea, Edema, Lt Headedness, Other Gastrointestinal: No: Nausea, Vomiting, Abdominal Pain, Diarrhea, Constipation, Melena, Hematochezia, Other Genitourinary: No Dysuria, No Frequency, No Incontinence, No Hematuria, No Retention, No Other Musculoskeletal: other (joint pain, muscle pain, others (left hip pain)); No: neck pain, shoulder pain, arm pain, back pain, hand pain, leg pain, foot pain Skin: No: Rash, Lesions, Jaundice, Bruising, Other Neurological: No: Weakness, Numbness, Incoordination, Change in speech, Confusion, Seizures, Other Allergies: Coded Allergies: NO KNOWN ALLERGIES (Unverified , 09/09/24) Medications Current Medications Medications Dose Ordered Sig/Sarah Route Start Time Stop Time Status Last Admin Dose Admin Hydromorphone HCl 0.5 mg Q4HPRN PRN IV 06/10/25 19:45 06/10/25 20:27 0.5 MG Acetaminophen/ Hydrocodone Bitart 1 tab Q4HP PRN PO 06/10/25 19:45 Ondansetron HCl 4 mg Q4HP PRN IV 06/10/25 19:45 Docusate Sodium 100 mg BIDPRN PRN PO 06/10/25 19:45 Enoxaparin Sodium 40 mg DAILY SC 06/11/25 10:00 Acetaminophen 650 mg Q6HP PRN PO 06/10/25 19:45 Exam Vital Signs Vital Signs Date Time Temp Pulse Resp B/P (MAP) Pulse Ox O2 Delivery O2 Flow Rate FiO2 06/10/25 20:27 60 22 139/72 06/10/25 19:30 98.1 94 98.1 06/10/25 12:30 Room Air* 0 21 General Appearance: Alert, Oriented X3, Cooperative, No acute distress HEENT: Atraumatic, PERRLA, EOMI, Mucous membr. moist/pink Respiratory: Clear to auscultation, Normal air movement Cardiovascular: Regular rate, Normal S1, Normal S2, No murmurs Abdominal: Normal bowel sounds, Soft, No tenderness, No hepatospenomegaly, No masses Extremities: No clubbing, No cyanosis, No edema, Normal pulses, Other (Left hip tenderness) Skin: No rashes, No breakdown, No significant lesion Neuro: Normal speech, Normal tone, Sensation intact, Cranial nerves 3-12 NL, Reflexes 2+, Other (Unsteady gait) Psych/Mental Status: Mental status NL, Mood NL Labs/Xrays Labs Test 06/10/25 12:30 06/10/25 12:19 Range/Units Urine Color Yellow Yellow Urine Clarity Clear Clear Urine pH 5.5 5.0-9.0 Urine Specific [place] 1.026 1.001-1.035 Urine Protein Negative Negative Urine Ketones Negative Negative Urine Blood Negative Negative /uL Urine Nitrite Negative Negative Urine Bilirubin Negative Negative Urine Urobilinogen Normal Negative mg/dL Urine Leukocyte Esterase Negative Negative /uL Urine RBC 1 0 - 3 /hpf Urine Microscopic WBC 1 0-3 /HPF Urine Squamous Epithelial Cells Few <5 /hpf Urine Bacteria None seen None Seen /hpf Urine Mucus Few None Seen Urine Glucose Normal Normal mg/dL White Blood Count 8.6 4.4-10.8 10^3/uL Red Blood Count 4.51 4.5-5.90 10^6/uL Hemoglobin 13.9 13.5-17.5 g/dL Hematocrit 41.6 41.0-53.0 % Mean Corpuscular Volume 92.3 80.0-100.0 fL Mean Corpuscular Hemoglobin 30.9 28.0-32.0 pg Mean Corpuscular Hemoglobin Concent 33.5 32.0-36.0 g/dL Red Cell Distribution Width 13.6 11.8-14.3 % Platelet Count 162 140-450 10^3/uL Mean Platelet Volume 8.6 6.9-10.8 fL Neutrophils (%) (Auto) 84.0 H 37.0-80.0 % Lymphocytes (%) (Auto) 8.9 L 10.0-50.0 % Monocytes (%) (Auto) 6.4 0.0-12.0 % Eosinophils (%) (Auto) 0.4 0.0-7.0 % Basophils (%) (Auto) 0.3 0.0-2.0 % Neutrophils # (Auto) 7.2 1.6-8.6 10 ^3/uL Lymphocytes # (Auto) 0.8 0.4-5.4 10 ^3/uL Monocytes # (Auto) 0.5 0-1.3 10 ^3/uL Eosinophils # (Auto) 0 0-0.8 10 ^3/uL Basophils # (Auto) 0 0-0.2 10 ^3/uL Nucleated Red Blood Cells 0.0 % Prothrombin Time 11.4 9.3-11.8 sec Prothrombin Time INR 1.08 0.9-1.15 Sodium Level 141 136-145 mmol/L Potassium Level 4.2 3.5-5.1 mmol/L Chloride Level 105 98-107 mmol/L Carbon Dioxide Level 27 20-31 mmol/L Anion Gap 9 5-15 Blood Urea Nitrogen 20 9-23 mg/dL Creatinine 1.16 0.700-1.30 mg/dL Glomerular Filtration Rate Calc 67 >90 mL/min BUN/Creatinine Ratio 17.2 10.0-20.0 Serum Glucose 138 H 74-106 mg/dL Calcium Level 9.1 8.7-10.4 mg/dL PATIENT: WALTER MCCAIN ACCT: [id number] UNIT: [id number] : 1955 LOC: ER ROOM / BED: / AGE / SEX: 69 / M ADM STATUS: REG ER SERVICE 1134 ORDERING PHYSICIAN: LIZETH WALTERS PROCEDURE(s): LHPCT - CT L HIP WITH OUT CONTRAST REASON: FALL TODAY ORDER NUMBER(s): [id number], ACCESSION NUMBER(s): [id number] EXAM: CT CT L HIP WITH OUT CONTRAST HISTORY: FALL TODAY COMPARISON: None TECHNIQUE: Noncontrast axial CT images of the left hip were performed. Sagittal and coronal reformatted images were obtained. This CT exam was performed using one or more of the following dose reduction techniques: Automated exposure control, adjustment of the mA and/or kV according to patient size, or use of iterative reconstruction technique. Radiation Dose Information: CT Dose: CTDI volume is 22.71 mGy. Dose-length product is 705.12 mGy*cm. FINDINGS: There is a displaced fracture of the mid left femoral neck with proximal translation of the distal fracture fragment resulting in coxa vera angulation of the proximal left femur. There is mild soft tissue swelling about the left hip. The visualized pelvic bowel loops are normal caliber. There is mild prostatomegaly. There is a small fat containing left inguinal hernia. There is mild distal colonic diverticulosis. There is subcutaneous soft tissue swelling overlying the left hip. IMPRESSION: 1. Displaced mid left femoral neck fracture with proximal translation of the distal femoral fracture fragment resulting in coxa vera angulation of the proximal left femur. ORDERING PHYSICIAN: LIZETH WALTERS PROCEDURE(s): CXR1 - CHEST XRAY 1 VIEW REASON: PRE SURGERY ORDER NUMBER(s): [id number], ACCESSION NUMBER(s): [id number] CHEST RADIOGRAPH Indication: PRE SURGERY Technique: Single frontal view of the chest was obtained COMPARISON: None FINDINGS: Lines and Tubes: Pacemaker/AICD in the left upper chest with 2 cardiac leads. Lungs: Clear Pleura: No effusion. No pneumothorax. Cardiomediastinal contours: Unremarkable Bones: Unremarkable IMPRESSION: 1. No radiographic evidence of acute cardiopulmonary abnormality. SEPSIS Sepsis Screen Date sepsis recognized/suspect: Jun 10, 2025 Time Sepsis recognized/suspect: 0 Recent Procedure: No On Antibiotic Therapy: No Respiratory Rate >20: No Heart Rate >90: No Temp<36 C (96.8 F) or >38.3 C: No SBP <90 or MAP <65 mmHG: No New Acute Mental Status Change: No Is the patient on CPAP, BIPAP,: No Physician Orders * Orthopedic Consult (06/10/25 12:56) Hydromorphone Injection (Dilaudid Inject (06/10/25 19:45) Allergies (06/10/25 19:43) Code Status (06/10/25 19:43) Oxygen Per Hour (06/10/25 19:43) Hydrocodone-Acet 5/325mg Tab (Primrose 5/32 (06/10/25 19:45) Ondansetron Hcl (Zofran) (06/10/25 19:45) Docusate Sodium Capsule (Colace Capsule) (06/10/25 19:45) Enoxaparin Sodium (Lovenox) (06/11/25 10:00) Fall Risk Precautions In Place QSHIFT (06/10/25 19:43) Complete Blood Count (06/11/25 04:00) Comprehensive Metabolic Panel (06/11/25 04:00) Condition: Serious (06/10/25 19:43) Acetaminophen Tablet (Tylenol Tablet) (06/10/25 19:45) Clear Liq Diet (06/11/25 Breakfast) Maintain Bed Rest (06/10/25 19:43) Sequential Compression Device (06/10/25 ) Vital Signs Date Time Temp Pulse Resp B/P (MAP) Pulse Ox O2 Delivery O2 Flow Rate FiO2 06/10/25 20:27 60 22 139/72 06/10/25 19:30 98.1 60 22 139/72 (94) 94 98.1 06/10/25 18:00 60 18 140/78 (98) 92 06/10/25 16:00 60 18 128/71 (90) 92 06/10/25 14:30 60 18 127/75 06/10/25 14:30 60 18 127/75 (92) 92 06/10/25 13:24 60 12 137/73 Laboratory Tests Test 06/10/25 12:19 White Blood Count 8.6 10^3/uL (4.4-10.8) Medications Medications Dose Ordered Sig/Sarah Route Start Time Stop Time Status Last Admin Dose Admin Acetaminophen/ Hydrocodone Bitart 1 tab ONCE ONCE PO 06/10/25 17:00 06/10/25 17:01 DC 06/10/25 17:08 1 TAB Hydromorphone HCl 0.5 mg ONCE ONCE IV 06/10/25 13:15 06/10/25 13:16 DC 06/10/25 13:24 0.5 MG Hydromorphone HCl 0.5 mg Q4HPRN PRN IV 06/10/25 19:45 06/10/25 20:27 0.5 MG Ondansetron HCl 4 mg ONCE ONCE IV 06/10/25 12:15 06/10/25 12:16 DC 06/10/25 13:15 4 MG Sodium Chloride 1,000 ml @ 1,000 mls/hr Q1H ONCE IV 06/10/25 12:15 06/10/25 13:14 DC 06/10/25 13:15 1,000 MLS/HR Assessment/Plan Assessment/Plan Fall with injury Left hip pain Left displaced femoral neck fracture Plan 1. Admit to telemetry unit 2. Breathing treatment 3. Pain control management 4. Management of fluids and electrolytes 5. Consultation for orthopedic surgery 6. Diagnostic tests hip CT 7. DVT prophylaxis-on Lovenox 8. Repeat labs CBC, CMP in a.m. 9. Continue with current medical management 10. Treatment plan discussed with patient and RN. Patient verbalized understanding. Plan discussed with: Patient, Other (RN) My Orders Orders - CRISTI MCCOY DNP Procedure Category Date Status Time Hydromorphone PHA 06/10/25 In Process Injection (Dilaudid 19:45 Allergies ROBIN 06/10/25 In Process 19:43 Code Status CODE 06/10/25 Transmitted 19:43 Oxygen Per Hour RT 06/10/25 Transmitted 19:43 Hydrocodone-Acet PHA 06/10/25 In Process 5/325mg Tab (Primrose 19:45 Ondansetron Hcl PHA 06/10/25 In Process (Zofran) 19:45 Docusate Sodium PHA 06/10/25 In Process Capsule (Colace 19:45 Enoxaparin Sodium PHA 06/11/25 In Process (Lovenox) 10:00 Fall Risk Precautions ROBIN 06/10/[address] 19:43 Complete Blood Count LAB 06/11/25 Verified 04:00 Comprehensive LAB 06/11/25 Verified Metabolic Panel 04:00 Condition: Serious ROBIN 06/10/25 In Process 19:43 Acetaminophen Tablet PHA 06/10/25 In Process (Tylenol Tablet) 19:45 Clear Liq Diet DIET 06/11/25 Transmitted Breakfast Maintain Bed Rest ROBIN 06/10/25 In Process 19:43 Sequential ROBIN 06/10/25 In Process Compression Device Problem List: (1) Fall with injury (2) Left hip pain (3) Left displaced femoral neck fracture Date of Service: Jun 10, 2025 Billing Provider: CRISTI MCCOY DNP Common Visit Codes: [id number] INP/OBS CARE (HIGH) CRISTI MCCOY DNP Jun 10, 2025 20:36
[2025-06-10] MEDS ORDERED: MORPHINE SULFATE INJ 2 MG/ml SYRG IV PRN (20:45)
[2025-06-10] MEDS ORDERED: NITROGLYCERIN 0.4 MG SL TAB SL PRN (20:45)
--- NOTE | 2025-06-10 23:24 | DVH ---
CLINICAL INDICATION: Left femoral neck fracture TECHNIQUE: XYXY PELVIS AP Comparison: None FINDINGS/IMPRESSION: : Displaced subcapital femoral neck fracture with foreshortening, varus angulation, and a half shafts w idth lateral displacement of the distal fragment.
[2025-06-10] MEDS: HYDROcodone-ACET 5/325MG TAB PO PRN (23:49)
[2025-06-11] VITALS (8 sets, daily range): BP systolic 118–145; BP diastolic 74–82; PULSE 60–62; RESP 16–20; TEMP 97.1–99.1; O2SAT 93–94
[2025-06-11] MEDS: ACETAMINOPHEN 325 MG TAB PO PRN (01:23)
[2025-06-11 07:35] LABS: Hematocrit 38.4 % (41.0-53.0); Hemoglobin 13.1 g/dL (13.5-17.5); Mean Corpuscular Hemoglobin 31.0 pg (28.0-32.0); Mean Corpuscular Volume 91.0 fL (80.0-100.0); Nucleated Red Blood Cells % 0.0 %
[2025-06-11 07:53] LABS: Alanine Aminotransferase 16 U/L (7-40); Albumin 3.6 g/dL (3.2-4.8); Alkaline Phosphatase 67 U/L (46-116); Anion Gap 8 (5-15); BUN/Creatinine Ratio 13.2 (10.0-20.0); Bilirubin, Total 0.7 mg/dL (0.2-1.0); Blood Urea Nitrogen 14 mg/dL (9-23); Carbon Dioxide 29 mmol/L (20-31); Chloride 104 mmol/L (98-107); Glucose 98 mg/dL (74-106); Potassium 4.4 mmol/L (3.5-5.1); Sodium 141 mmol/L (136-145); Total Protein 6.5 g/dL (5.7-8.2)
[2025-06-11 07:56] LABS: Calcium 8.3 mg/dL (8.7-10.4)
[2025-06-11] MEDS: ENOXAPARIN SOD 40 MG/0.4 ML SYRINGE SC SCH (09:08)
--- NOTE | 2025-06-11 17:23 | DVHPN2 ---
Subjective c/o pain left hip/no other complaints Changes from previous H/P or p: No Changes Eyes: No Pain, No Vision change, No Conjunctivae inflammation, No Eyelid inflammation, No Other, No Redness ENT: No Ear pain, No Ear discharge, No Nose pain, No Nose discharge, No Nose congestion, No Mouth pain, No Mouth swelling, No Throat pain, No Throat swelling, No Other Cardiovascular: No Chest Pain, No Palpitations, No Orthopnea, No Paroxysmal Noc. Dyspnea, No Edema, No Lt Headedness, No Other Respiratory: No Cough, No Dry, No Shortness of breath, No SOB with excertion, No Wheezing, No Hemoptysis, No Pleuritic Pain, No Sputum, No Other Gastrointestinal: No Nausea, No Vomiting, No Abdominal Pain, No Diarrhea, No Constipation, No Melena, No Hematochezia, No Other Genitourinary: No Dysuria, No Frequency, No Incontinence, No Hematuria, No Retention, No Other Musculoskeletal: other (joint pain, muscle pain, others (left hip pain)); No neck pain, No shoulder pain, No arm pain, No back pain, No hand pain, No leg pain, No foot pain Skin: No Rash, No Lesions, No Jaundice, No Bruising, No Other Objective Vitals Vital Signs Date Time Temp Pulse Resp B/P (MAP) Pulse Ox O2 Delivery O2 Flow Rate FiO2 06/11/25 13:00 98.6 60 20 132/79 (96) 94 98.6 06/11/25 03:09 Room Air* 0 21 Intake/Output Intake and Output 06/11/25 07:00 Intake Total 1000 ml Balance 1000 ml Intake Oral 0 ml IV Total 1000 ml # Voids 2 General Appearance: Alert, Oriented X3, Cooperative, No acute distress Lungs: Clear to auscultation Cardiovascular: Regular rate, Normal S1, Normal S2 Abdomen: Normal bowel sounds, Soft, No tenderness, No hepatospenomegaly Musculoskeletal: Normal sensory function, Normal motor function Neuro: Normal gait, Normal speech, Strength at 5/5 X4 ext, Normal tone, S ensation intact, Cranial nerves 3-12 NL, Reflexes 2+ Psych/Mental Status: Mental status NL, Mood NL Medications Current Medications Medications Dose Ordered Sig/Sarah Route Start Time Stop Time Status Last Admin Dose Admin Hydromorphone HCl 0.5 mg Q4HPRN PRN IV 06/10/25 19:45 06/11/25 09:10 0.5 MG Acetaminophen/ Hydrocodone Bitart 1 tab Q4HP PRN PO 06/10/25 19:45 06/10/25 23:49 1 TAB Ondansetron HCl 4 mg Q4HP PRN IV 06/10/25 19:45 Docusate Sodium 100 mg BIDPRN PRN PO 06/10/25 19:45 Enoxaparin Sodium 40 mg DAILY SC 06/11/25 10:00 06/11/25 09:08 40 MG Acetaminophen 650 mg Q6HP PRN PO 06/10/25 19:45 06/11/25 01:23 650 MG Nitroglycerin 0.4 mg Q5MINP PRN SL 06/10/25 20:45 Morphine Sulfate 2 mg Q30M PRN IV 06/10/25 20:45 Laboratory Results Laboratory Tests 06/11/25 07:20 Chemistry Test 06/11/25 07:20 Albumin 3.6 g/dL (3.2-4.8) Calcium Level 8.3 mg/dL (8.7-10.4) L Total Protein 6.5 g/dL (5.7-8.2) LFT Test 06/11/25 07:20 Alanine Aminotransferase (ALT) 16 U/L (7-40) Alkaline Phosphatase 67 U/L (46-116) Aspartate Amino Transferase (AST) 21 U/L (13-40) Total Bilirubin 0.7 mg/dL (0.2-1.0) Urinalysis Test 06/10/25 12:30 Urine Color Yellow (Yellow) Urine Clarity Clear (Clear) Urine pH 5.5 (5.0-9.0) Urine Specific [place] 1.026 (1.001-1.035) Urine Protein Negative (Negative) Urine Ketones Negative (Negative) Urine Blood Negative /uL (Negative) Urine Nitrite Negative (Negative) Urine Bilirubin Negative (Negative) Urine Urobilinogen Normal mg/dL (Negative) Urine Leukocyte Esterase Negative /uL (Negative) Urine RBC 1 /hpf (0 - 3) Urine Microscopic WBC 1 /HPF (0-3) Urine Squamous Epithelial Cells Few /hpf (<5) Urine Bacteria None seen /hpf (None Seen) Urine Mucus Few (None Seen) Urine Glucose Normal mg/dL (Normal) Microbiology Microbiology Date/Time Source Procedure Growth Status 06/11/25 09:49 Nose MRSA Screen - Final Complete Assessment/Plan Assessment/Plan s/p fall with left femoral neck fracture- ortho consulted/pain control dvt prophylaxis last echo 12/16 normal- Plan discussed with: Patient, Spouse, Other Date of Service: Jun 11, 2025 Billing Provider: MAGDI NYE MD Common Visit Codes: [id number] INP/OBS CARE(MOD) MAGDI NYE MD Jun 11, 2025 17:23
[2025-06-12] VITALS (8 sets, daily range): BP systolic 87–138; BP diastolic 62–78; PULSE 57–60; RESP 14–20; TEMP 97.9–98.3; O2SAT 92–97
[2025-06-12] MEDS: TRANEXAMIC ACID 20 ML ONE (10:03)
[2025-06-12] MEDS: ROPIVACAINE 0.5% (5MG/ML) 20ML AMPULE IJ ONE (10:27)
[2025-06-12] MEDS ORDERED: PROPOFOL 10 MG/ML 20 ML IV ONE (10:30)
[2025-06-12] MEDS ORDERED: fentaNYL CITRATE 100 MCG/2 ML VL ONE (10:31)
[2025-06-12] MEDS ORDERED: MIDAZOLAM HCL 2MG/2ML 2ml VIAL (1mg/ml) ONE (10:32)
[2025-06-12] MEDS: ceFAZolin 2 GM/D5W50ml 50 ML IV ONE (10:45)
[2025-06-12] MEDS: CEFEPIME 1GM/50ML 50 ML IV ONE (10:50)
[2025-06-12] MEDS: MORPHINE SULF PF 5 MG/10 ML VIAL ONE (11:41)
[2025-06-12] MEDS: KETOROLAC TROMETH 30 MG/ML 1ML VIAL ONE (11:41)
[2025-06-12] MEDS: BUPIVACAINE 0.25% INJ 50ML VIAL ONE (11:41)
[2025-06-12] MEDS: VANCOMYCIN HCL 1000 MG VL ONE (11:45)
--- NOTE | 2025-06-12 16:39 | DVHPN2 ---
Subjective 69-year-old male was admitted due to a fall which resulted to a left hip fracture and had surgery today He is healthy with no medical problems before Changes from previous H/P or p: Changes Eyes: No Pain, No Vision change, No Conjunctivae inflammation, No Eyelid inflammation, No Other, No Redness ENT: No Ear pain, No Ear discharge, No Nose pain, No Nose discharge, No Nose congestion, No Mouth pain, No Mouth swelling, No Throat pain, No Throat swelling, No Other Cardiovascular: No Chest Pain, No Palpitations, No Orthopnea, No Paroxysmal Noc. Dyspnea, No Edema, No Lt Headedness, No Other Respiratory: No Cough, No Dry, No Shortness of breath, No SOB with excertion, No Wheezing, No Hemoptysis, No Pleuritic Pain, No Sputum, No Other Gastrointestinal: No Nausea, No Vomiting, No Abdominal Pain, No Diarrhea, No Constipation, No Melena, No Hematochezia, No Other Genitourinary: No Dysuria, No Frequency, No Incontinence, No Hematuria, No Retention, No Other Musculoskeletal: other (joint pain, muscle pain, others (left hip pain)); No neck pain, No shoulder pain, No arm pain, No back pain, No hand pain, No leg pain, No foot pain Skin: No Rash, No Lesions, No Jaundice, No Bruising, No Other Objective Vitals Vital Signs Date Time Temp Pulse Resp B/P (MAP) Pulse Ox O2 Delivery O2 Flow Rate FiO2 06/12/25 13:05 60 20 97/53 (68) 98 06/12/25 13:05 Room Air 0 98 06/12/25 12:23 98.2 98.2 Intake/Output Intake and Output 06/12/25 07:00 Intake Total 698 ml Output Total 500 ml Balance 198 ml Intake Oral 698 ml Output Urine Total 500 ml # Bowel Movements 1 General Appearance: Alert, Oriented X3, Cooperative, No acute distress Lungs: Clear to auscultation Cardiovascular: Regular rate, Normal S1, Normal S2 Abdomen: Normal bowel sounds, Soft, No tenderness, No hepatospenomegaly Musculoskeletal: Normal sensory function, Normal motor function Neuro: Normal gait, Normal speech, Strength at 5/5 X4 ext, Normal tone, S ensation intact, Cranial nerves 3-12 NL, Reflexes 2+ Psych/Mental Status: Mental status NL, Mood NL Medications Current Medications Medications Dose Ordered Sig/Sarah Route Start Time Stop Time Status Last Admin Dose Admin Hydromorphone HCl 0.5 mg Q4HPRN PRN IV 06/10/25 19:45 06/12/25 08:34 0.5 MG Acetaminophen/ Hydrocodone Bitart 1 tab Q4HP PRN PO 06/10/25 19:45 06/10/25 23:49 1 TAB Ondansetron HCl 4 mg Q4HP PRN IV 06/10/25 19:45 Docusate Sodium 100 mg BIDPRN PRN PO 06/10/25 19:45 Enoxaparin Sodium 40 mg DAILY SC 06/11/25 10:00 06/11/25 09:08 40 MG Acetaminophen 650 mg Q6HP PRN PO 06/10/25 19:45 06/11/25 01:23 650 MG Nitroglycerin 0.4 mg Q5MINP PRN SL 06/10/25 20:45 Morphine Sulfate 2 mg Q30M PRN IV 06/10/25 20:45 Cefazolin Sodium 50 ml @ 100 mls/hr Q8HR IV 06/12/25 14:00 Laboratory Results Laboratory Tests 06/11/25 07:20 Urinalysis Test 06/10/25 12:30 Urine Color Yellow (Yellow) Urine Clarity Clear (Clear) Urine pH 5.5 (5.0-9.0) Urine Specific [place] 1.026 (1.001-1.035) Urine Protein Negative (Negative) Urine Ketones Negative (Negative) Urine Blood Negative /uL (Negative) Urine Nitrite Negative (Negative) Urine Bilirubin Negative (Negative) Urine Urobilinogen Normal mg/dL (Negative) Urine Leukocyte Esterase Negative /uL (Negative) Urine RBC 1 /hpf (0 - 3) Urine Microscopic WBC 1 /HPF (0-3) Urine Squamous Epithelial Cells Few /hpf (<5) Urine Bacteria None seen /hpf (None Seen) Urine Mucus Few (None Seen) Urine Glucose Normal mg/dL (Normal) Microbiology Microbiology Date/Time Source Procedure Growth Status 06/11/25 09:49 Nose MRSA Screen - Final Complete Assessment/Plan Assessment/Plan Left hip fracture status post ORIF Plan Pain control Physical therapy evaluation Order walker and crutches for home use Monitor closely Plan discussed with: Patient Date of Service: Jun 12, 2025 Billing Provider: SHALA KOWALSKI MD Common Visit Codes: [id number] INP/OBS CARE(HIGH) Secondary Visit Codes: [id number] CARE PLAN 30 MINUTES SHALA KOWALSKI MD Jun 12, 2025 16:39
[2025-06-12] MEDS: ceFAZolin 1GM/50ML 50 ML IV SCH (17:45)
[2025-06-13] VITALS (8 sets, daily range): BP systolic 83–136; BP diastolic 49–74; PULSE 60–67; RESP 16–18; TEMP 97.6–99.8; O2SAT 91–96
--- NOTE | 2025-06-13 08:11 | DVHPN2 ---
Progress Note Date Seen: Jun 13, 2025 Medical Necessity Reason Pt with a Central, PICC or Fol: No Subjective Patient reports: No new complaints Objective vital signs Vital Sign Date Time Temp Pulse Resp B/P (MAP) Pulse Ox O2 Delivery O2 Flow Rate FiO2 06/13/25 05:52 78 16 106/60 06/13/25 05:00 97.6 91 97.6 06/12/25 20:33 Room Air* 0 21 Total Intake and Output 06/12/25 06/12/25 06/13/25 15:00 23:00 07:00 Intake Total 200 ml 1250 ml 400 ml Balance 200 ml 1250 ml 400 ml medications Current Medications Medications Dose Ordered Sig/Sarah Route Start Time Stop Time Status Last Admin Dose Admin Hydromorphone HCl 0.5 mg Q4HPRN PRN IV 06/10/25 19:45 06/13/25 05:22 0.5 MG Acetaminophen/ Hydrocodone Bitart 1 tab Q4HP PRN PO 06/10/25 19:45 06/12/25 21:34 1 TAB Ondansetron HCl 4 mg Q4HP PRN IV 06/10/25 19:45 Docusate Sodium 100 mg BIDPRN PRN PO 06/10/25 19:45 Enoxaparin Sodium 40 mg DAILY SC 06/11/25 10:00 06/11/25 09:08 40 MG Acetaminophen 650 mg Q6HP PRN PO 06/10/25 19:45 06/11/25 01:23 650 MG Nitroglycerin 0.4 mg Q5MINP PRN SL 06/10/25 20:45 Morphine Sulfate 2 mg Q30M PRN IV 06/10/25 20:45 Cefazolin Sodium 50 ml @ 100 mls/hr Q8HR IV 06/12/25 14:00 06/13/25 05:17 100 MLS/HR Examination: GENERAL:Normal, MSK:Abnormal laboratory and microbiology Laboratory Tests 06/11/25 07:20 Test 06/11/25 07:20 Range/Units Serum Glucose 98 74-106 mg/dL Microbiology Date/Time Source Procedure Growth Status 06/11/25 09:49 Nose MRSA Screen - Final Complete Problem List/Assessment/Plan Problem List/Assessment/Plan 69 year old male who is s/p Left MARCELO POD 1 1. Pain control 2. DVT ppx 3. posterior hip precautions 4. Physical therapy 5. WBAT with walker 6. Aquacel dressing to remain in place 7. Plan for follow up in [address] Nelson at [facility] ortho clinic 8. clear for discharge planning from orthopedic standpoint with the following recommendations: POSTOPERATIVE Posterior Total Hip INSTRUCTIONS Activity: 1. You can bear as much weight as you tolerate on your hip unless specifically instructed otherwise. You may use the walking aid which you were discharged with and switch to a cane whenever you feel comfortable doing so. You should use an assistive device until you can walk comfortably without it. Keep in mind that every patient moves at their own speed of recovery so take your time. 2. A physical therapist will visit you at home. 3. Although guarantees against a dislocation do not exist, the hip was noted to be sufficiently stable in surgery. Below are motions that you should dischargenot do for 4-6 weeks, depending on the surgical approach used. If there are questions, please call the office. a. Bend forward past 90 degrees b. Sit on a regular low chair, couch, car seat etc... c. Cross your legs d. Use a regular low toilet seat. e. Sleep on your stomach or on either side. 3. High impact activity such as jumping, aerobics, tennis, and skiing are not permitted during the first 3 months after surgery. These activities can contribute to accelerated wear and should be done with caution after this time. Discuss this with your surgeon if you have questions. 4. Although a bath or whirlpool is NOT permitted during the first 2-3 weeks, you may shower as soon as you get home from the hospital provided you are able to keep your bandage clean and dry and there is no wound drainage. If you are unable to place a secured covering over your bandage bed bath/sponge bath may likely be the more appropriate option. 5. Swimming is not permitted until the wound is healed, which typically occurs approximately 3-4 weeks after surgery. Wound Management: If the wound is draining please change the gauze pad on the wound until it stops. If drainage persists past 10 days please notify our office. If there is a sticky gel dressing over your wound, you may leave this in place for as long as it is clean and dry. If it becomes loose or causes skin irritation, it is OK to remove it and place clean gauze over your wound. 1. You might notice some bruising around the surgical site, this is normal. 2. Check your temperature on a daily basis. Please note that a low-grade temp below 101 is not uncommon after surgery especially during the first 3 days. Notify the office if your temperature spikes above 101.5 after the 3rd post- operative date. 3. Many patients experience significant swelling in the thigh, this may extend below the knee and sometimes to the ankle. Swelling increases during the first week and subsides during the following week. 4. Provided you have been on a blood thinner since surgery and have been up and about at least three times per day, the risk of a blood clot is low and this swelling is an expected part of recovery. It will largely or completely resolve by your first post-operative visit. 5. [place], if present, will be removed at 2 weeks during initial post-op visit. Medications: 1. You will be discharged with pain medication, Aspirin as a blood thinner and sometimes an anti-inflammatory medication such as Celebrex or Mobic might be prescribed. Please follow the instructions regarding these medicines as provided by your nurse at the hospital. 2. Narcotic pain medication has side effects, including constipation. Please ensure you continue to take stool softeners (Colace, Senna) while taking your pain medication to help protect against constipation. Getting up and moving around at least a few times per day helps with this also. 3. Lovenox 40 Sq x 12 days followed by one regular strength 325 mg coated aspirin daily for 4 weeks after surgery. Then, take one baby aspirin, 81 mg daily for 6 weeks more. A major, yet preventable, complication of Orthopaedic Surgery is a blood clot (DVT). It is important not to miss any doses of this important medication. 4. You should restart all of your prescription medications once discharged unless specifically instructed otherwise. 5. Herbal supplements may be restarted 2 weeks after surgery. Miscellaneous issues: 1. Driving is not permitted within the first 2 weeks. 2. Your first postoperative visit will take place 2weeks after discharge. Please call the office to arrange this appointment. 3. Antibiotic preventative treatment is required before dental or other invasive procedures. Please ask your surgeon about this at your first postoperative visit. Your hip replacement contains metal which may activate metal detectors. You may wish to carry a letter from your surgeon to communicate this to security personnel. If you experience chest pain, shortness of breath or severe painful calf swelling, go to the nearest emergency room to be evaluated. Please call our office once your situation is stabilized. Plan discussed with: Patient My Orders My Orders Orders - LUIGI ARTEAGA NP Procedure Category Date Status Time Weight Bearing ROBIN 06/12/25 In Process 12:19 Pt Request For Service PT 06/12/25 Logged 12:19 Regular Diet DIET 06/12/25 Transmitted Lunch Cefazolin 1gm/50ml PHA 06/12/25 In Process (Ancef) 14:00 Date of Service: Jun 13, 2025 Billing Provider: UMM NELSON MD Common Visit Codes: NOT BILLABLE LUIGI ARTEAGA NP Jun 13, 2025 08:11
--- NOTE | 2025-06-13 09:55 | DVHPN2 ---
Subjective Complains of pain He says Bandana is not working now He is going to be seen again by Physical therapy today Changes from previous H/P or p: Changes Eyes: No Pain, No Vision change, No Conjunctivae inflammation, No Eyelid inflammation, No Other, No Redness ENT: No Ear pain, No Ear discharge, No Nose pain, No Nose discharge, No Nose congestion, No Mouth pain, No Mouth swelling, No Throat pain, No Throat swelling, No Other Cardiovascular: No Chest Pain, No Palpitations, No Orthopnea, No Paroxysmal Noc. Dyspnea, No Edema, No Lt Headedness, No Other Respiratory: No Cough, No Dry, No Shortness of breath, No SOB with excertion, No Wheezing, No Hemoptysis, No Pleuritic Pain, No Sputum, No Other Gastrointestinal: No Nausea, No Vomiting, No Abdominal Pain, No Diarrhea, No Constipation, No Melena, No Hematochezia, No Other Genitourinary: No Dysuria, No Frequency, No Incontinence, No Hematuria, No Retention, No Other Musculoskeletal: other (joint pain, muscle pain, others (left hip pain)); No neck pain, No shoulder pain, No arm pain, No back pain, No hand pain, No leg pain, No foot pain Skin: No Rash, No Lesions, No Jaundice, No Bruising, No Other Objective Vitals Vital Signs Date Time Temp Pulse Resp B/P (MAP) Pulse Ox O2 Delivery O2 Flow Rate FiO2 06/13/25 08:46 98.1 60 16 120/66 (84) 91 98.1 06/12/25 20:33 Room Air* 0 21 Intake/Output Intake and Output 06/13/25 07:00 Intake Total 1850 ml Balance 1850 ml Intake Oral 1600 ml IV Total 250 ml # Voids 4 General Appearance: Alert, Oriented X3, Cooperative, No acute distress Lungs: Clear to auscultation Cardiovascular: Regular rate, Normal S1, Normal S2 Abdomen: Normal bowel sounds, Soft, No tenderness, No hepatospenomegaly Musculoskeletal: Normal sensory function, Normal motor function Neuro: Normal gait, Normal speech, Strength at 5/5 X4 ext, Normal tone, S ensation intact, Cranial nerves 3-12 NL, Reflexes 2+ Psych/Mental Status: Mental status NL, Mood NL Medications Current Medications Medications Dose Ordered Sig/Sarah Route Start Time Stop Time Status Last Admin Dose Admin Hydromorphone HCl 0.5 mg Q4HPRN PRN IV 06/10/25 19:45 06/13/25 05:22 0.5 MG Acetaminophen/ Hydrocodone Bitart 1 tab Q4HP PRN PO 06/10/25 19:45 06/12/25 21:34 1 TAB Ondansetron HCl 4 mg Q4HP PRN IV 06/10/25 19:45 Docusate Sodium 100 mg BIDPRN PRN PO 06/10/25 19:45 Enoxaparin Sodium 40 mg DAILY SC 06/11/25 10:00 06/11/25 09:08 40 MG Acetaminophen 650 mg Q6HP PRN PO 06/10/25 19:45 06/11/25 01:23 650 MG Nitroglycerin 0.4 mg Q5MINP PRN SL 06/10/25 20:45 Morphine Sulfate 2 mg Q30M PRN IV 06/10/25 20:45 Cefazolin Sodium 50 ml @ 100 mls/hr Q8HR IV 06/12/25 14:00 06/13/25 05:17 100 MLS/HR Laboratory Results Laboratory Tests 06/11/25 07:20 Urinalysis Test 06/10/25 12:30 Urine Color Yellow (Yellow) Urine Clarity Clear (Clear) Urine pH 5.5 (5.0-9.0) Urine Specific [place] 1.026 (1.001-1.035) Urine Protein Negative (Negative) Urine Ketones Negative (Negative) Urine Blood Negative /uL (Negative) Urine Nitrite Negative (Negative) Urine Bilirubin Negative (Negative) Urine Urobilinogen Normal mg/dL (Negative) Urine Leukocyte Esterase Negative /uL (Negative) Urine RBC 1 /hpf (0 - 3) Urine Microscopic WBC 1 /HPF (0-3) Urine Squamous Epithelial Cells Few /hpf (<5) Urine Bacteria None seen /hpf (None Seen) Urine Mucus Few (None Seen) Urine Glucose Normal mg/dL (Normal) Microbiology Microbiology Date/Time Source Procedure Growth Status 06/11/25 09:49 Nose MRSA Screen - Final Complete Assessment/Plan Assessment/Plan Left hip fracture status post ORIF Plan Pain control Physical therapy evaluation Order walker and crutches for home use Monitor closely 06/13/2025: Change Bandana to Percocet for moderate pain Continue Dilaudid for severe pain Work with physical therapy again today Order home health for physical therapy and occupational therapy Walker and crutches were ordered Discharge planning for tomorrow Lovenox for DVT prophylaxis Plan discussed with: Patient My Orders Orders - SHALA KOWALSKI MD Procedure Category Date Status Time * Chief Solution Architect CONS 06/12/25 Transmitted Consult * Chief Solution Architect CONS 06/13/25 Transmitted Consult Date of Service: Jun 13, 2025 Billing Provider: SHALA KOWALSKI MD Common Visit Codes: [id number] INP/OBS CARE(HIGH) SHALA KOWALSKI MD Jun 13, 2025 09:55
[2025-06-13] MEDS: OXYCODONE W/ ACETAMINOPHEN 5/325MG TABLET PO PRN (11:12)
[2025-06-14 01:00] VITALS: BP 126/65; PULSE 60; RESP 18; TEMP 98.9; O2SAT 91
[2025-06-14 05:00] VITALS: BP 99/57; PULSE 60; RESP 18; TEMP 98.4; O2SAT 91
--- NOTE | 2025-06-14 07:32 | ECG ---
[facility] Test Date: 2025-06-12 Test Time: 10:02:51 Pat Name: WALTER MCCAIN Department: Respiratoy Room: 0274T A Gender: M Long [employer] Quiller Tender: PANCHO : 1955 Requested By: SHALA KOWALSKI Order Number: [id number] Reading MD: Emiliano Nazario Measurements Intervals [place] Rate: 60 P: -6 MO: 168 QRS: -7 QRSD: 124 T: -45 QT: 405 QTc: 405 Interpretive Statements Sinus rhythm Nonspecific intraventricular conduction delay Borderline T abnormalities, inferior leads Baseline wander in lead(s) III,aVL Electronically Signed On 06-19-2025 15:22:05 PDT by Emiliano Nazario Please click the below link to view image of tracing.
[2025-06-14 07:37] LABS: Hematocrit 32.2 % (41.0-53.0); Hemoglobin 11.1 g/dL (13.5-17.5); Mean Corpuscular Hemoglobin 31.6 pg (28.0-32.0); Mean Corpuscular Volume 91.7 fL (80.0-100.0); Nucleated Red Blood Cells % 0.0 %
[2025-06-14 07:38] LABS: Alanine Aminotransferase 16 U/L (7-40); Alkaline Phosphatase 54 U/L (46-116); Anion Gap 8 (5-15); BUN/Creatinine Ratio 20.0 (10.0-20.0); Blood Urea Nitrogen 20 mg/dL (9-23); Carbon Dioxide 27 mmol/L (20-31); Chloride 104 mmol/L (98-107); Potassium 4.0 mmol/L (3.5-5.1); Sodium 139 mmol/L (136-145); Total Protein 5.8 g/dL (5.7-8.2)
[2025-06-14 07:39] LABS: Bilirubin, Total 0.8 mg/dL (0.2-1.0)
[2025-06-14 07:47] LABS: Albumin 3.2 g/dL (3.2-4.8); Calcium 8.2 mg/dL (8.7-10.4); Glucose 106 mg/dL (74-106)
[2025-06-14 08:00] VITALS: PULSE 60
[2025-06-14 09:00] VITALS: BP 121/69; PULSE 60; RESP 16; TEMP 97.8; O2SAT 93
[2025-06-14] MEDS: DOCUSATE SOD 100 MG CAP PO PRN (09:41)
[2025-06-14] MEDS ORDERED: PERCOT PO (09:44)
--- NOTE | 2025-06-14 09:48 | DVHDS2 ---
Discharge Summary Date of Admission Jun 10, 2025 at 20:35 Date of Discharge: Jun 14, 2025 Labs/Diagnostic Data: Laboratory Results Test 06/14/25 05:30 06/10/25 12:30 06/10/25 12:19 White Blood Count 9.2 10^3/uL (4.4-10.8) Red Blood Count 3.51 10^6/uL (4.5-5.90) Hemoglobin 11.1 g/dL (13.5-17.5) Hematocrit 32.2 % (41.0-53.0) Mean Corpuscular Volume 91.7 fL (80.0-100.0) Mean Corpuscular Hemoglobin 31.6 pg (28.0-32.0) Mean Corpuscular Hemoglobin Concent 34.5 g/dL (32.0-36.0) Red Cell Distribution Width 13.4 % (11.8-14.3) Platelet Count 139 10^3/uL (140-450) Mean Platelet Volume 9.0 fL (6.9-10.8) Neutrophils (%) (Auto) 77.3 % (37.0-80.0) Lymphocytes (%) (Auto) 11.8 % (10.0-50.0) Monocytes (%) (Auto) 10.4 % (0.0-12.0) Eosinophils (%) (Auto) 0.4 % (0.0-7.0) Basophils (%) (Auto) 0.1 % (0.0-2.0) Neutrophils # (Auto) 7.1 10 ^3/uL (1.6-8.6) Lymphocytes # (Auto) 1.1 10 ^3/uL (0.4-5.4) Monocytes # (Auto) 1.0 10 ^3/uL (0-1.3) Eosinophils # (Auto) 0 10 ^3/uL (0-0.8) Basophils # (Auto) 0 10 ^3/uL (0-0.2) Nucleated Red Blood Cells 0.0 % Sodium Level 139 mmol/L (136-145) Potassium Level 4.0 mmol/L (3.5-5.1) Chloride Level 104 mmol/L (98-107) Carbon Dioxide Level 27 mmol/L (20-31) Anion Gap 8 (5-15) Blood Urea Nitrogen 20 mg/dL (9-23) Creatinine 1.00 mg/dL (0.700-1.30) Glomerular Filtration Rate Calc 80 mL/min (>90) BUN/Creatinine Ratio 20.0 (10.0-20.0) Serum Glucose 106 mg/dL (74-106) Calcium Level 8.2 mg/dL (8.7-10.4) Total Bilirubin 0.8 mg/dL (0.2-1.0) Aspartate Amino Transferase (AST) 35 U/L (13-40) Alanine Aminotransferase (ALT) 16 U/L (7-40) Alkaline Phosphatase 54 U/L (46-116) Total Protein 5.8 g/dL (5.7-8.2) Albumin 3.2 g/dL (3.2-4.8) Urine Color Yellow (Yellow) Urine Clarity Clear (Clear) Urine pH 5.5 (5.0-9.0) Urine Specific [place] 1.026 (1.001-1.035) Urine Protein Negative (Negative) Urine Ketones Negative (Negative) Urine Blood Negative /uL (Negative) Urine Nitrite Negative (Negative) Urine Bilirubin Negative (Negative) Urine Urobilinogen Normal mg/dL (Negative) Urine Leukocyte Esterase Negative /uL (Negative) Urine RBC 1 /hpf (0 - 3) Urine Microscopic WBC 1 /HPF (0-3) Urine Squamous Epithelial Cells Few /hpf (<5) Urine Bacteria None seen /hpf (None Seen) Urine Mucus Few (None Seen) Urine Glucose Normal mg/dL (Normal) Prothrombin Time 11.4 sec (9.3-11.8) Prothrombin Time INR 1.08 (0.9-1.15) Other Laboratory Tests 06/14/25 05:30 Brief Hx & Hospital Course: Doses: Left femoral neck fracture 69-year-old male who was admitted due to if mechanical fall which resulted in and left displaced femoral neck fracture He required ORIF Surgery was done successfully with no complications Physical therapy ambulated the patient Pain control was done with [place] and then switched to Percocet for better control Today he says he has pain is better and he is ambulating with physical therapy with minimal assistance and therefore he is ready to go home Discharged home on physical therapy for home health and bedside commode and a walker and crutches Percocet p.r.n. for the pain Follow up with Orthopedic surgery 2 weeks Condition at Discharge: Stable Final Diagnosis/Problems List Left femoral neck fracture Status post ORIF Discharge Disposition: Home SNF Discharge Will this Physician continue t: No Discharge Instruct/Medications Diet: Cardiac 2g Na,low cholest Activity: No Restrictions, As Tolerated Follow Up/Referral: Orthopedic surgery in 2 weeks Medications: Percocet q.6 hours 12/24/2024 p.r.n. Scheduled Aspirin (Aspir-Low), 81 MG PO DAILY, (Reported) Scheduled PRN Oxycodone W/ Acetaminophen (Percocet 5/325MG), 1 TAB PO Q6HP PRN Discharge Statement: "Patient was advised to return to the ER or call 911 if any headaches, dizziness, shortness of breath, chest pain, abdominal pain, bleeding, fevers, or worsening of medical condition. Patient was counseled about treatment plan, medications, possible side effects, patientverbalized understanding. All questions were answered to the best of my ability. This discharge took greater then 30 minutes in planning, reviewing documentation, counseling the patient, and discussing with other team members." ASSESSMENT ASSESSMENT Assessment Left hip fracture status post ORIF Date of Service: Jun 14, 2025 Billing Provider: SHALA KOWALSKI MD Common Visit Codes: 32379-ORI/OBS DISCH DAY >30min SHALA KOWALSKI MD Jun 14, 2025 09:48
[2025-06-14 12:40] VITALS: BP 105/62; PULSE 60; RESP 17; TEMP 98.1; O2SAT 94
[2025-06-14 16:54] VITALS: BP 122/65; PULSE 79; RESP 16; TEMP 97.6; O2SAT 97
--- NOTE | 2025-06-15 14:03 | DVHINCON2 ---
Date of service: Jun 11, 2025 Reason for Consultation Displaced left femoral neck fracture History of Present Illness 69 yo M sp mechanical fall onto left hip. Immediate pain/swelling/inability to bear weight on left leg. No cp/sob/abd pain/nausea/vomiting/diarrhea. Prior to this patient was active without using a walker or assistive device. Past Medical History List reviewed Allergies: Coded Allergies: NO KNOWN ALLERGIES (Unverified , 09/09/24) Home Meds Active Scripts Oxycodone W/ Acetaminophen (Percocet 5/325MG) 1 Tab Tb, 1 TAB PO Q6HP PRN, #30 TAB Prov:SHALA KOWALSKI MD 06/14/25 Reported Medications Aspirin (Aspir-Low) 81 Mg Tab, 81 MG PO DAILY for 30 Days, MG 06/20/24 Review of Systems 10 point ROS is neg except per HPI Vital Signs Vital Signs Date Time Temp Pulse Resp B/P (MAP) Pulse Ox O2 Delivery O2 Flow Rate FiO2 06/14/25 16:54 97.6 79 16 122/65 (84) 97 97.6 06/14/25 08:00 Room Air* 0 21 Physical Exam NAD LLE: short/ext rotated +TA/GS/EHL/FHL foot wwp Labs/Diagnostic Data Labs Test 06/14/25 05:30 06/10/25 12:30 06/10/25 12:19 Range/Units White Blood Count 9.2 # 4.4-10.8 10^3/uL Red Blood Count 3.51 L 4.5-5.90 10^6/uL Hemoglobin 11.1 #L 13.5-17.5 g/dL Hematocrit 32.2 #L 41.0-53.0 % Mean Corpuscular Volume 91.7 80.0-100.0 fL Mean Corpuscular Hemoglobin 31.6 28.0-32.0 pg Mean Corpuscular Hemoglobin Concent 34.5 32.0-36.0 g/dL Red Cell Distribution Width 13.4 11.8-14.3 % Platelet Count 139 L 140-450 10^3/uL Mean Platelet Volume 9.0 6.9-10.8 fL Neutrophils (%) (Auto) 77.3 37.0-80.0 % Lymphocytes (%) (Auto) 11.8 10.0-50.0 % Monocytes (%) (Auto) 10.4 0.0-12.0 % Eosinophils (%) (Auto) 0.4 0.0-7.0 % Basophils (%) (Auto) 0.1 0.0-2.0 % Neutrophils # (Auto) 7.1 1.6-8.6 10 ^3/uL Lymphocytes # (Auto) 1.1 0.4-5.4 10 ^3/uL Monocytes # (Auto) 1.0 0-1.3 10 ^3/uL Eosinophils # (Auto) 0 0-0.8 10 ^3/uL Basophils # (Auto) 0 0-0.2 10 ^3/uL Nucleated Red Blood Cells 0.0 % Sodium Level 139 136-145 mmol/L Potassium Level 4.0 3.5-5.1 mmol/L Chloride Level 104 98-107 mmol/L Carbon Dioxide Level 27 20-31 mmol/L Anion Gap 8 5-15 Blood Urea Nitrogen 20 9-23 mg/dL Creatinine 1.00 0.700-1.30 mg/dL Glomerular Filtration Rate Calc 80 >90 mL/min BUN/Creatinine Ratio 20.0 10.0-20.0 Serum Glucose 106 74-106 mg/dL Calcium Level 8.2 L 8.7-10.4 mg/dL Total Bilirubin 0.8 0.2-1.0 mg/dL Aspartate Amino Transferase (AST) 35 13-40 U/L Alanine Aminotransferase (ALT) 16 7-40 U/L Alkaline Phosphatase 54 46-116 U/L Total Protein 5.8 5.7-8.2 g/dL Albumin 3.2 3.2-4.8 g/dL Urine Color Yellow Yellow Urine Clarity Clear Clear Urine pH 5.5 5.0-9.0 Urine Specific [place] 1.026 1.001-1.035 Urine Protein Negative Negative Urine Ketones Negative Negative Urine Blood Negative Negative /uL Urine Nitrite Negative Negative Urine Bilirubin Negative Negative Urine Urobilinogen Normal Negative mg/dL Urine Leukocyte Esterase Negative Negative /uL Urine RBC 1 0 - 3 /hpf Urine Microscopic WBC 1 0-3 /HPF Urine Squamous Epithelial Cells Few <5 /hpf Urine Bacteria None seen None Seen /hpf Urine Mucus Few None Seen Urine Glucose Normal Normal mg/dL Prothrombin Time 11.4 9.3-11.8 sec Prothrombin Time INR 1.08 0.9-1.15 Microbiology Date/Time Source Procedure Growth Status 06/11/25 09:49 Nose MRSA Screen - Final Complete Plan/Recommendation 69 yo M with displaced left femoral neck fracture 1. Plan for left total hip arthroplasty 2. Med clearance 3. NPO/IVF 4. pain control Plan discussed with: Patient UMM TEJEDA MD Jun 15, 2025 14:03
--- NOTE | 2025-06-15 14:06 | DVHOP2 ---
Operative Report - 2 Report Details Date: 06/12/25 Preop Diagnosis: Displaced left femoral neck fracture Postop Diagnosis: as above Surgeon: Willy Tejeda MD Motion Picture Scene Builder: Dustin WASHBURN Anesthesiologist: Frederick ACUNA Anesthesia: Regional Implant: [employer] see implant log Consent: The patient was informed of the risks and benefits of the procedure. These include but are not limited to complications of anesthesia, postoperative infection, incomplete relief of symptoms, recurrence of symptoms, damage to blood vessels, nerves and tendons, deep venous thrombosis, pulmonary embolism and possible need for repeat surgery in the future. Estimated Blood Loss: 300 cc Name of Procedure Performed Left total hip arthroplasty using computer navigation Procedure Details Procedure Details: FINDINGS: displaced left femoral neck fracture with edematous muscle INDICATION: I had a long discussion with the patient regarding the plan, the expected outcome, the risks, benefits, and alternatives of surgery. The risks include, but are not limited to, infection (which may require future surgery and removal of implants) , bleeding (which may require a transfusion), damage to nerves, arteries, veins, tendons, muscles and other adjacent structures. Also discussed the possibilities of dislocation, leg-length discrepancy, intraoperative fractures, implant loosening, heterotopic bone formation, and revision for variety of reasons, and medical complications etc. This was discussed at length and consent has been obtained. DESCRIPTION OF PROCEDURE: In the preoperative holding area, the consent was reviewed and the appropriate extremity was verified by the patient and marked with my initials. The patient was then transferred to the operating theatre. Appropriate anesthetia was induced. All bony prominences were well padded. A time out was performed verifying the side and site of surgery according to standard protocol. Preoperative antibiotics were given. Tranexamic acid was given. The patient was then placed in the lateral decubitus position and fixed with rigid pelvic fixation. All bony prominences were well padded and an axillary roll was placed. The affected hip area was then prepped and draped in the usual sterile fashion. Using an 11-blade, three stab incisions were made over the iliac crest. Two threaded guide pins were inserted into the crest confirming to be in bone. The pelvic array was attached to the pins and tightened. We made a standard posterolateral incision sharply through the skin and carried our dissection down through subcutaneous tissue to the underlying fascia achieving hemostasis where necessary. We incised the fascia in line with our incision. We identified and protected the sciatic nerve. We took down the external rotators and hip capsule from their insertion into the greater trochanter, tagged them and retracted them posteriorly for further protection of the sciatic nerve. A check point was placed into the greater trochanter and the hip center and l eg length length were registered. We then dislocated the femoral head and performed an osteotomy of the femoral neck in accordance with our pre-operative plan. The labrum was excised with a long-handle knife, and we exposed the acetabular rim and cotyloid fossa. We then reamed up to our final size in accordance with the preoperative plan. We copiously irrigated and then impacted the final cup into position. We confirmed the position with the robotic navigation guidance. We placed a acetabular dome screws into the posterior-superior quadrant in the usual fashion. We irrigated the cup and impacted the liner, checking to make sure it was well seated. Attention was then turned to the femur. We used a box osteotome followed by a canal finder to gain entry to the canal. Intramedullary contents were suctioned and care was taken to ensure they did not touch the tissues. We sequentially reamed until good cortical contact, then broached up to out final size. We trialed with the appropriate femoral neck and head and reduced the hip. The hip was taken through a full range of motion. The hip soft tissues were examined in extension and external rotation, the anterior capsule and IT band were palpated, and combined anteversion was determined to be 40 degrees. The hip was stable at maximum flexion, at 90 degrees of flexion and 45 degrees of internal rotation and the position of sleep. Leg lengths were restored as shown using the computer navigation, and the trial LTC matched preoperative and intraoperative templatin g. The hip was then dislocated and trial components removed. We copiously irrigated the wound and impacted the final femoral stem into position. The femoral head was impacted onto a clean and dry trunion and confirmed to be seated. The hip was reduced ensuring to tissues in the acetabular cup. We again brought it through a full functional range of motion and there was no evidence for dislocation, instability, or impingement. The checkpoint was removed. A dilute betadine solution (17.5mL in 500mL saline) was used to wash the joint and left to sit for 3 minutes. This was then irrigated out with copious amounts of pulse lavage. We sprinkled 1g vancomycin powder below the fascia and 1g above the fascia. We copiously irrigated the wound and soft tissues. The short external rotators and capsule were repaired to the greater trochanter through drill holes, and the quadratus was repaired. We palpated the sciatic nerve in continuity without tension. The fascia was closed with vicryl and a barbed suture. We closed over the fascia with vicryl suture and re-approximated the skin with con. A sterile dressing was placed. We returned the patient to the supine position. We verified all lower extremity compartments were soft and compressible and that we had intact distal pulses and checked our leg length anabaptism. The patient was then transferred to the recovery room in stable condition. Condition Good Disposition Still a Patient WILLY TEJEDA MD Jun 15, 2025 14:06
== END 2025-06-14 17:20 | disposition home or self-care (01) | DRG 522 ==
LOC: ER 11:22 → OVERFLOW 20:35 → TELE-WESTW 06-11 02:30
PROVIDERS: ADMIT Internal Medicine Geriatric Medicine; ATTEND Internal Medicine Geriatric Medicine
PROC: 8E0YXBZ Computer Assisted Procedure of Lower Extremity (ICD-10-PCS; 2025-06-12)
PROC: 8E0Y0CZ Robotic Assisted Procedure of Lower Extremity, Open Approach (ICD-10-PCS; 2025-06-12)
PROC: 0SRB06Z Replacement of Left Hip Joint with Oxidized Zirconium on Polyethylene Synthetic Substitute, Open Approach (ICD-10-PCS; principal; 2025-06-12 10:41)
DX: S72.092A Other fracture of head and neck of left femur, initial encounter for closed fracture (principal); Z79.82 Long term (current) use of aspirin; Z79.899 Other long term (current) drug therapy; W01.0XXA Fall on same level from slipping, tripping and stumbling without subsequent striking against object, initial encounter; Y93.89 Activity, other specified; Y92.89 Other specified places as the place of occurrence of the external cause; Y99.8 Other external cause status
CPT/HCPCS: 36415; 71045; 72170; 73700; 80048; 80053; 81001; 85025; 85610; 86850; 86900; 86901; 87081; 93005; 96361; 96374; 96375; 97110; 97116; 97163; 97530; G0378; J1885; J2250; J2405; J2704; J3490